=== PATIENT | female | born 2000 | race Caucasian/White ===

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

== ENCOUNTER → 2018-03-13 | Outpatient (REF) | payer OTHER ==
[2018-03-13 12:07] LABS: ALBUMIN 3.3 GM/DL (3.2-5.2); ALBUMIN/GLOBULIN RATIO 0.83 (1.00-1.93); ALKALINE PHOSPHATASE 80 U/L (45-117); ALT/SGPT 29 U/L (12-78); ANION GAP 10 MEQ/L (8-16); AST/SGOT 27 U/L (7-37); BILIRUBIN,TOTAL 0.3 MG/DL (0.2-1.0); BLOOD UREA NITROGEN 12 MG/DL (7-18); CALCIUM LEVEL 9.1 MG/DL (8.5-10.1); CARBON DIOXIDE LEVEL 23 MEQ/L (21-32); CHLORIDE LEVEL 109 MEQ/L (98-107); CREATININE FOR GFR 0.68 MG/DL (0.55-1.30); GLUCOSE, FASTING 175 MG/DL (70-100); IRON (FE) 61 UG/DL (50-170); POTASSIUM SERUM 4.4 MEQ/L (3.5-5.1); SODIUM LEVEL 142 MEQ/L (136-145); TOTAL PROTEIN 7.3 GM/DL (6.4-8.2)
[2018-03-13 12:24] LABS: HEPATITIS B SURFACE ANTIGEN NEGATIVE (NEGATIVE)
[2018-03-13 12:47] LABS: HEPATITIS B CORE ANTIBODY IGM NEGATIVE (NEGATIVE)
[2018-03-13 12:53] LABS: HEPATITIS A ANTIBODY IGM NEGATIVE (NEGATIVE)
[2018-03-13 13:17] LABS: ESTIMATED AVERAGE GLUCOSE 157 MG/DL (60-110); HEMOGLOBIN A1c 7.1 %
[2018-03-14 08:06] LABS: TRANSFERRIN 264 mg/dL (200-370)
== END ==
LOC: M SFHCPLAZ 09:13
DX: E11.9 Type 2 diabetes mellitus without complications (principal); R79.89 Other specified abnormal findings of blood chemistry

== ENCOUNTER → 2018-03-20 | Outpatient (REF) | payer OTHER, SELFPAY ==
[2018-03-20 13:47] LABS: CHLAMYDIA DNA AMPLIFICATION POSITIVE (NEGATIVE); GC DNA AMPLIFICATION NEGATIVE (NEGATIVE)
== END ==
LOC: M SFHCWAGY 11:35
DX: Z11.3 Encounter for screening for infections with a predominantly sexual mode of transmission (principal); N94.10 Unspecified dyspareunia; N72 Inflammatory disease of cervix uteri
CPT/HCPCS: 87591

== ENCOUNTER → 2018-05-04 | Outpatient (REF) | payer OTHER | LOC: M LAB REF 19:03 | DX: N39.0 Urinary tract infection, site not specified (principal) ==

== ENCOUNTER → 2018-06-25 | Outpatient (REF) | payer OTHER | LOC: M SFHCPLAZ 17:11 | DX: R30.0 Dysuria (principal) | CPT/HCPCS: 87086 ==

== ENCOUNTER → 2018-07-09 | Outpatient (REF) | payer OTHER | LOC: M SFHCWAGY 17:04 | DX: A60.1 Herpesviral infection of perianal skin and rectum (principal) ==

== ENCOUNTER → 2018-10-23 | Outpatient (REF) | payer OTHER ==
[2018-10-23 12:36] LABS: ALBUMIN 3.3 GM/DL (3.2-5.2); ALBUMIN/GLOBULIN RATIO 0.87 (1.00-1.93); ALKALINE PHOSPHATASE 81 U/L (45-117); ALT/SGPT 19 U/L (12-78); ANION GAP 11 MEQ/L (8-16); AST/SGOT 13 U/L (7-37); BILIRUBIN,TOTAL 0.2 MG/DL (0.2-1.0); BLOOD UREA NITROGEN 13 MG/DL (7-18); CALCIUM LEVEL 9.3 MG/DL (8.5-10.1); CARBON DIOXIDE LEVEL 26 MEQ/L (21-32); CHLORIDE LEVEL 104 MEQ/L (98-107); CREATININE FOR GFR 0.71 MG/DL (0.55-1.30); GLUCOSE, FASTING 169 MG/DL (70-100); POTASSIUM SERUM 3.9 MEQ/L (3.5-5.1); SODIUM LEVEL 141 MEQ/L (136-145); TOTAL PROTEIN 7.1 GM/DL (6.4-8.2)
[2018-10-23 13:04] LABS: ESTIMATED AVERAGE GLUCOSE 148 MG/DL (60-110); HEMOGLOBIN A1c 6.8 %
== END ==
LOC: M SFHCPLAZ 08:49
DX: E11.9 Type 2 diabetes mellitus without complications (principal); K76.0 Fatty (change of) liver, not elsewhere classified

== ENCOUNTER 2019-01-25 22:51 | Emergency (ER) | payer BC, OTHER, SELFPAY ==
[~2019-01-25] VITALS: Ht 157.5 cm; Wt 89.1 kg
[~2019-01-25 22:51] MED LIST changes: +GLIP5TAB8; +JANU100T; +NUVAMIS2; -PROHANCE 279.3MG/ML 15ML VIAL (A9576) As Ordered ONE; -PROHANCE 279.3MG/ML 5ML VIAL (A9576) As Ordered ONE
[2019-01-25] MEDS ORDERED: VALA500T5 (23:01)
[2019-01-25] MEDS ORDERED: DULO1CAP2 (23:01)
[2019-01-25] MEDS ORDERED: TRUL0.5I (23:01)
[2019-01-25] MEDS ORDERED: METF-723 (23:01)
[2019-01-26] MEDS ORDERED: diphenhydrAMINE INJ 50MG/ML VIAL (J1200) IV ONE (00:45)
[2019-01-26] MEDS ORDERED: NS 500 ML IV ONE (00:45)
[2019-01-26] MEDS ORDERED: KETOROLAC 30 MG/ML VIAL (J1885) IV ONE (00:45)
[2019-01-26] MEDS ORDERED: METOCLOPRAMIDE INJ 10MG/2ML VIAL (J2765) IV ONE (00:45)
[2019-01-26 01:45] VITALS: BP 127/72
== END 2019-01-26 01:45 | disposition home or self-care (01) ==
LOC: M ED 22:51
DX: G44.209 Tension-type headache, unspecified, not intractable (principal); E11.9 Type 2 diabetes mellitus without complications; Z79.84 Long term (current) use of oral hypoglycemic drugs; Z79.899 Other long term (current) drug therapy; Z91.013 Allergy to seafood; Z79.3 Long term (current) use of hormonal contraceptives; Z82.0 Family history of epilepsy and other diseases of the nervous system
CPT/HCPCS: 96374; 96375; 99284; J1200; J1885; J2765

== ENCOUNTER → 2019-01-28 | Outpatient (CLI) | payer SELFPAY ==
[~2019-01-28] MED LIST changes: +DULO1CAP2; +METF-723; +TRUL0.5I; +VALA500T5
[2019-01-28 16:48] LABS: BLOOD UREA NITROGEN 11 MG/DL (7-18); CALCIUM LEVEL 9.2 MG/DL (8.5-10.1); CARBON DIOXIDE LEVEL 26 MEQ/L (21-32); CHLORIDE LEVEL 106 MEQ/L (98-107); CREATININE FOR GFR 0.68 MG/DL (0.55-1.30); GLUCOSE, FASTING 123 MG/DL (70-100); POTASSIUM SERUM 4.2 MEQ/L (3.5-5.1); SODIUM LEVEL 141 MEQ/L (136-145)
[2019-01-28 17:17] LABS: HEMOGLOBIN A1c 6.7 %
== END ==
LOC: M LAB 15:48
PROVIDERS: ATTEND Nurse Practitioner Family
DX: E11.9 Type 2 diabetes mellitus without complications (principal)

== ENCOUNTER 2019-03-10 12:07 | Emergency (ER) | payer BC ==
[~2019-03-10] VITALS: Ht 157.5 cm; Wt 94.1 kg
[2019-03-10] MEDS ORDERED: KETOROLAC 60 MG/2 ML VIAL (J1885) IM ONE (12:45)
[2019-03-10] MEDS ORDERED: ROBA500T PO (13:08)
[2019-03-10] MEDS ORDERED: NAPR500T6 PO (13:09)
[2019-03-10 13:17] VITALS: BP 127/77
== END 2019-03-10 13:26 | disposition home or self-care (01) ==
LOC: M ED 12:07
DX: M54.5 Low back pain (principal); E11.9 Type 2 diabetes mellitus without complications; Z79.84 Long term (current) use of oral hypoglycemic drugs; Z79.899 Other long term (current) drug therapy; Z91.018 Allergy to other foods
CPT/HCPCS: 96372; 99283; J1885

== ENCOUNTER → 2019-03-24 | Outpatient (REF) | payer BC ==
[~2019-03-24] MED LIST changes: +ALBU17IN2 INH; +AZIT-12 PO; +NAPR500T6 PO; +ROBA500T PO; +TESS100C PO
== END ==
LOC: M LAB REF 19:06
PROVIDERS: ATTEND Physician Assistant Medical
DX: J02.9 Acute pharyngitis, unspecified (principal)

== ENCOUNTER 2019-03-26 22:30 | Emergency (ER) | payer BC ==
[~2019-03-26] VITALS: Ht 157.5 cm; Wt 95.5 kg
[~2019-03-26 22:30] MED LIST changes: -ALBU17IN2 INH; -AZIT-12 PO; -TESS100C PO
[2019-03-26] MEDS ORDERED: ACETAMINOPHEN TAB 650MG DOSE (2X325MG) PO ONE (23:15)
[2019-03-26] MEDS: IPRATROPIUM 0.5MG/ALBUTEROL 2.5MG INH SOL UD 3ML (DUONEB)(J7620) NEB PRN ×2 (23:26→23:46)
[2019-03-26 23:36] LABS: HEMATOCRIT 38.6 % (36.0-47.0); HEMOGLOBIN 12.6 g/dl (12.0-15.5); MEAN CORPUSCULAR HEMOGLOBIN 27.7 pg (27.0-33.0); MEAN CORPUSCULAR HGB CONC 32.6 g/dl (32.0-36.5); MEAN CORPUSCULAR VOLUME 84.8 fl (80.0-96.0); PLATELET COUNT, AUTOMATED 329 10^3/uL (150-450); RED BLOOD COUNT 4.55 10^6/uL (4.00-5.40); WHITE BLOOD COUNT 10.3 10^3/uL (4.0-10.0)
[2019-03-27 00:01] LABS: BLOOD UREA NITROGEN 8 MG/DL (7-18); CALCIUM LEVEL 8.5 MG/DL (8.5-10.1); CARBON DIOXIDE LEVEL 20 MEQ/L (21-32); CHLORIDE LEVEL 108 MEQ/L (98-107); CK-MB VALUE MASS < 1.0 NG/ML (<3.6); CPK CREATINE PHOSPHOKINASE 170 U/L (26-192); CREATININE FOR GFR 0.79 MG/DL (0.55-1.30); GLUCOSE, FASTING 146 MG/DL (70-100); MB/CK RELATIVE INDEX 0.59 (< OR =4); POTASSIUM SERUM 3.6 MEQ/L (3.5-5.1); SODIUM LEVEL 140 MEQ/L (136-145); TROPONIN I < 0.02 NG/ML (< 0.10)
[2019-03-27] MEDS ORDERED: ALBU17IN2 INH (00:27)
[2019-03-27] MEDS ORDERED: TESS100C PO (00:27)
[2019-03-27] MEDS: IPRATROPIUM 0.5MG/ALBUTEROL 2.5MG INH SOL UD 3ML (DUONEB)(J7620) NEB PRN (00:29)
[2019-03-27] MEDS ORDERED: BENZONATATE 100 MG CAP PO ONE (00:30)
[2019-03-27 00:35] VITALS: BP 138/71
--- NOTE | 2019-03-27 06:03 | ECGEPIP ---
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
--- NOTE | 2019-03-27 08:24 | REP ---
At x-ray: Two views. History: Chest pain. Comparison chest x-ray: February 05, 2012. Findings: There is an infiltrate behind the heart in the left lower lobe consistent with pneumonia. Pleural angles are sharp. Heart size is normal. Pulmonary vasculature is not increased. No significant bony abnormality is seen. Impression: Left lower lobe pneumonia. Electronically Signed by Shaheen Gordillo MD 03/27/2019 08:16 A
[2019-03-27] MEDS ORDERED: AZIT-12 PO (17:10)
--- NOTE | 2019-03-27 18:10 | ED PDOC ---
Post-Departure Follow-Up Called the patient to see how she was doing. Explained her xray was read as a le ft lower lobe pneumonia. I sent in an antibiotic for her and she stated she would pick it up today. LAVELLE IRVING PA-C March 27, 2019 18:10
--- NOTE | 2019-03-30 06:15 | ED PDOC ---
Post-Departure Follow-Up benson snow faxed formal report of cxr for fu Nanci Herman MD March 30, 2019 06:15
== END 2019-03-27 00:56 | disposition home or self-care (01) ==
LOC: M ED 22:30
DX: J06.9 Acute upper respiratory infection, unspecified (principal); J18.0 Bronchopneumonia, unspecified organism; R00.0 Tachycardia, unspecified; F41.9 Anxiety disorder, unspecified; A60.04 Herpesviral vulvovaginitis; Z79.3 Long term (current) use of hormonal contraceptives; Z91.013 Allergy to seafood; Z79.899 Other long term (current) drug therapy

== ENCOUNTER → 2019-08-23 | Outpatient (REF) | payer MEDICAID ==
[~2019-08-23] MED LIST changes: +AZIT-12 PO; -DULO1CAP2; +DULO1CAP5; +PROV108A INH; +TESS100C PO
[2019-08-23 21:57] LABS: APPEARANCE, URINE TURBID (CLEAR); BACTERIA, URINE AUTO 1+ (NEGATIVE); BILIRUBIN, URINE AUTO NEGATIVE (NEGATIVE); BLOOD, URINE BLOOD 2+ (NEGATIVE); COLOR, URINE YELLOW (YELLOW); GLUCOSE, URINE (UA) AUTO NEGATIVE (NEGATIVE); KETONE, URINE AUTO TRACE mg/dL (NEGATIVE); LEUKOCYTE ESTERASE, URINE AUTO 3+ (NEGATIVE); NITRITE, URINE AUTO POSITIVE (NEGATIVE); PROTEIN, URINE AUTO 1+ mg/dL (NEGATIVE); RBC, URINE AUTO 22 /HPF (0-3); SPECIFIC GRAVITY URINE AUTO 1.017 (1.002-1.035); SQUAMOUS EPITHELIAL CELL UR AU 4 /HPF (0-6); UROBILINOGEN, URINE AUTO 0.2 mg/dL (0.0-2.0); WBC, URINE AUTO TNTC /HPF (0-3)
== END ==
LOC: M LAB REF 10:04
PROVIDERS: ATTEND Physician Assistant Medical
DX: N39.0 Urinary tract infection, site not specified (principal)

== ENCOUNTER → 2019-11-18 | Outpatient (REF) | payer OTHER ==
[2019-11-18 14:13] LABS: ALT/SGPT 195 U/L (12-78); BILIRUBIN,TOTAL 0.6 MG/DL (0.2-1.0); BLOOD UREA NITROGEN 10 MG/DL (7-18); CALCIUM LEVEL 9.7 MG/DL (8.5-10.1); CARBON DIOXIDE LEVEL 24 MEQ/L (21-32); CHLORIDE LEVEL 98 MEQ/L (98-107); CREATININE FOR GFR 0.74 MG/DL (0.55-1.30); GLOMERULAR FILTRATION RATE > 60.0 (>60); GLUCOSE, FASTING 260 MG/DL (70-100); POTASSIUM SERUM 4.3 MEQ/L (3.5-5.1); SODIUM LEVEL 134 MEQ/L (136-145); TOTAL PROTEIN 8.1 GM/DL (6.4-8.2)
[2019-11-18 14:22] LABS: MALB URINE SIEMENS 32.4 MG/L; MAU/CREAT RATIO 24.1 MCG/MG (0.0-30.0)
[2019-11-18 14:43] LABS: HEMOGLOBIN A1c 9.1 %
== END ==
LOC: M SFHCPLAZ 11:44
PROVIDERS: ATTEND Physician Assistant
DX: E11.9 Type 2 diabetes mellitus without complications (principal)

== ENCOUNTER 2019-12-27 15:17 | Emergency (ER) | payer OTHER ==
[~2019-12-27] VITALS: Ht 157.5 cm; Wt 95.6 kg
[~2019-12-27 15:17] MED LIST changes: -NAPR-837 PO; -PROT1TAB2 PO; -ZOFR4TAB16 PO
[2019-12-27 16:03] LABS: BASO % 0.4 % (0.0-1.0); EOS # 0.1 10^3/uL (0.0-0.5); EOS % 1.2 % (0.0-3.0); HEMATOCRIT 41.3 % (36.0-47.0); HEMOGLOBIN 13.9 g/dl (12.0-15.5); LYMPH # 2.6 10^3/uL (1.5-5.0); LYMPH % 22.9 % (24.0-44.0); MEAN CORPUSCULAR HEMOGLOBIN 28.7 pg (27.0-33.0); MEAN CORPUSCULAR HGB CONC 33.7 g/dl (32.0-36.5); MEAN CORPUSCULAR VOLUME 85.2 fl (80.0-96.0); MONO # 0.7 10^3/uL (0.0-0.8); MONO % 6.4 % (0.0-5.0); NEUTROPHILS # 7.9 10^3/uL (1.5-8.5); NEUTROPHILS % 68.9 % (36.0-66.0); PLATELET COUNT, AUTOMATED 295 10^3/uL (150-450); RED BLOOD COUNT 4.85 10^6/uL (4.00-5.40); WHITE BLOOD COUNT 11.4 10^3/uL (4.0-10.0)
[2019-12-27 16:27] LABS: ALBUMIN 3.8 GM/DL (3.2-5.2); ALT/SGPT 220 U/L (12-78); BILIRUBIN,DIRECT 0.2 MG/DL (0.0-0.2); BILIRUBIN,TOTAL 0.6 MG/DL (0.2-1.0); BLOOD UREA NITROGEN 10 MG/DL (7-18); CALCIUM LEVEL 9.1 MG/DL (8.5-10.1); CARBON DIOXIDE LEVEL 24 MEQ/L (21-32); CHLORIDE LEVEL 106 MEQ/L (98-107); CREATININE FOR GFR 0.62 MG/DL (0.55-1.30); GLOMERULAR FILTRATION RATE > 60.0 (>60); GLUCOSE, FASTING 144 MG/DL (70-100); LIPASE 81 U/L (73-393); POTASSIUM SERUM 4.1 MEQ/L (3.5-5.1); SODIUM LEVEL 139 MEQ/L (136-145); TOTAL PROTEIN 7.3 GM/DL (6.4-8.2)
[2019-12-27 16:33] LABS: HCG, SERUM QUALITATIVE NEGATIVE (NEGATIVE)
[2019-12-27] MEDS ORDERED: GI COCKTAIL 50ML BTL(HYOSCYAMINE/MAALOX/LIDOCAINE VISCOUS)(1:3:1) PO ONE (18:00)
[2019-12-27] MEDS ORDERED: NAPR-837 PO (18:09)
[2019-12-27] MEDS ORDERED: ZOFR4TAB16 PO (18:09)
[2019-12-27] MEDS ORDERED: PROT1TAB2 PO (18:09)
[2019-12-27 18:14] VITALS: BP 131/77
[2019-12-27 18:51] LABS: HEPATITIS A ANTIBODY IGM NEGATIVE (NEGATIVE)
[2019-12-29 11:02] LABS: HEPATITIS B SURFACE ANTIGEN NEGATIVE (NEGATIVE)
[2019-12-29 11:30] LABS: HEPATITIS C VIRUS ABY INDEX < 0.0 INDEX (<0.8)
[2019-12-29 11:31] LABS: HEPATITIS B CORE ANTIBODY IGM NEGATIVE (NEGATIVE)
== END 2019-12-27 18:22 | disposition home or self-care (01) ==
LOC: M ED 15:17
DX: K75.89 Other specified inflammatory liver diseases (principal); E11.9 Type 2 diabetes mellitus without complications; G43.909 Migraine, unspecified, not intractable, without status migrainosus; Z79.899 Other long term (current) drug therapy; Z79.84 Long term (current) use of oral hypoglycemic drugs; Z79.3 Long term (current) use of hormonal contraceptives; Z91.018 Allergy to other foods

== ENCOUNTER → 2019-12-27 | Outpatient (CLI) | payer OTHER ==
[~2019-12-27] MED LIST changes: +NAPR-837 PO; +PROT1TAB2 PO; +ZOFR4TAB16 PO
--- NOTE | 2019-12-27 09:04 | REP ---
Clinical: Hepatic steatosis. Technique: Real time perez scale and color evaluation using curved array transducer. Findings: The liver is relatively normal in parenchymal echo texture and without significant suggestions for fatty infiltration. Few scattered simple hepatic cysts are identified measuring up to 10 mm in the right lobe. Pancreas is normal in appearance. The gallbladder is unremarkable and without gallstones, wall thickening, or pericholecystic fluid. No biliary ductal dilatation is appreciated and the common bile duct measures 4.2 mm diameter. The right kidney is normal in reniform shape without hydronephrosis and measures 11.2 x 6.3 x 4.7 cm. No ascites. Impression: 1. No definite findings to suggest hepatic steatosis. 2. Two 10 mm simple hepatic cysts. Electronically Signed by Wali Ibrahim MD 12/27/2019 08:56 A
== END ==
LOC: M RAD 08:07
PROVIDERS: ATTEND Physician Assistant
DX: K76.0 Fatty (change of) liver, not elsewhere classified (principal)

== ENCOUNTER → 2020-02-16 | Outpatient (REF) | payer OTHER ==
[~2020-02-16] MED LIST changes: +NAPR-837 PO; +PROT1TAB2 PO; +ZOFR4TAB16 PO
[2020-02-16 13:24] LABS: HEMATOCRIT 39.6 % (36.0-47.0); HEMOGLOBIN 13.4 g/dl (12.0-15.5); MEAN CORPUSCULAR HEMOGLOBIN 29.2 pg (27.0-33.0); MEAN CORPUSCULAR HGB CONC 33.8 g/dl (32.0-36.5); MEAN CORPUSCULAR VOLUME 86.3 fl (80.0-96.0); PLATELET COUNT, AUTOMATED 277 10^3/uL (150-450); RED BLOOD COUNT 4.59 10^6/uL (4.00-5.40); WHITE BLOOD COUNT 9.6 10^3/uL (4.0-10.0)
[2020-02-16 13:39] LABS: ALBUMIN 3.7 GM/DL (3.2-5.2); ALT/SGPT 207 U/L (12-78); BILIRUBIN,DIRECT 0.2 MG/DL (0.0-0.2); BILIRUBIN,TOTAL 0.7 MG/DL (0.2-1.0); CREATININE FOR GFR 0.66 MG/DL (0.55-1.30); GLOMERULAR FILTRATION RATE > 60.0 (>60); LDH LACTATE DEHYDROGENASE 187 U/L (84-246); TOTAL PROTEIN 7.8 GM/DL (6.4-8.2); URIC ACID 4.3 MG/DL (2.6-6.0)
[2020-02-16 13:53] LABS: RUBELLA IgG QUALITATIVE IMMUNE (IMMUNE)
[2020-02-16 13:54] LABS: HEPATITIS B SURFACE ANTIGEN NEGATIVE (NEGATIVE); TOTAL PROTEIN,RANDOM URINE 17.2 MG/DL (0.0-12.0)
[2020-02-16 14:01] LABS: HEMOGLOBIN A1c 8.8 %
[2020-02-16 14:22] LABS: HEPATITIS C VIRUS ABY INDEX 0.1 INDEX (<0.8)
[2020-02-16 14:23] LABS: HIV 1&2 SCREEN CENTAUR NEGATIVE (NEGATIVE)
== END ==
LOC: M PLALAB 11:07
PROVIDERS: ATTEND Advanced Practice Midwife
DX: O24.311 Unspecified pre-existing diabetes mellitus in pregnancy, first trimester (principal)

== ENCOUNTER → 2020-03-06 | Outpatient (REF) | payer OTHER | LOC: M LAB REF 11:13 | PROVIDERS: ATTEND Advanced Practice Midwife | DX: O24.311 Unspecified pre-existing diabetes mellitus in pregnancy, first trimester (principal) ==

== ENCOUNTER → 2020-03-13 | Outpatient (REF) | payer OTHER ==
[2020-03-13 20:12] LABS: CHLAMYDIA DNA AMPLIFICATION NEGATIVE (NEGATIVE); GC DNA AMPLIFICATION NEGATIVE (NEGATIVE)
== END ==
LOC: M PLALAB 14:02
PROVIDERS: ATTEND Obstetrics & Gynecology
DX: E11.9 Type 2 diabetes mellitus without complications (principal)

== ENCOUNTER → 2020-03-29 | Outpatient (REF) | payer OTHER ==
[2020-03-29 16:16] LABS: HEMOGLOBIN A1c 7.4 %
== END ==
LOC: M PLALAB 13:53
PROVIDERS: ATTEND Obstetrics & Gynecology
DX: O24.111 Pre-existing type 2 diabetes mellitus, in pregnancy, first trimester (principal)

== ENCOUNTER → 2020-05-16 | Outpatient (CLI) | payer OTHER ==
--- NOTE | 2020-05-16 12:25 | REP ---
OBSTETRIC SONOGRAPHY: HISTORY: Supervision of for anatomy. FINDINGS: Scanning through the gravid uterus demonstrates a viable single intrauterine gestation in a variable lie. motion is observed and heart rate is recorded at 153 beats per minute. A posterior grade 1 placenta is seen without evidence of previa or abruption. Amniotic fluid is subjectively normal. Closed cervical length measured transabdominally at 3.6 cm. No extrauterine abnormalities observed. No anomaly is seen. The following anatomic structures are identified and felt to be sonographically unremarkable: cranium, choroid plexus, cavum, cerebellum and posterior fossa, nuchal fold, face and profile, four-chamber heart with left and right ventricular outflow tract views, diaphragm, left-sided stomach, abdominal wall cord insertion, three-vessel cord, kidneys and bladder, spine, upper and lower extremities. Biometry Chart: BPD 4.5 cm = 19 weeks 4 days HC 16.4 cm = 19 weeks 1 day AC 14.2 cm = 19 weeks 4 days FL 3.1 cm = 19 weeks 3 days HL 3.0 cm = 19 weeks 6 days HC/AC ratio normal 1.15 Cephalic index normal 0.77. Estimated weight 296 grams, 0 pounds 10 ounces, 50th percentile for 19 weeks 3 days. IMPRESSION: Viable single intrauterine gestation of 19 weeks 2 days by today's composite sonographic criteria. GUERITA by today's sonography October 08, 2020.
== END ==
LOC: M WHC 10:02
PROVIDERS: ATTEND Obstetrics & Gynecology
DX: Z36.89 Encounter for other specified antenatal screening (principal); Z3A.19 19 weeks gestation of pregnancy

== ENCOUNTER → 2020-06-26 | Outpatient (REF) | payer OTHER ==
[~2020-06-26] MED LIST changes: +ASPI81TA26; +FOLI20CA PO; +HYDR12.55 PO; +IBUP80TA PO; +INSUR; +INSUR SQ; +LABE200T32 PO; +LABE20TAB PO; +MAPA500T2 PO; +NIFE1TAB52 PO; +OXYC1TAB23 PO
[2020-07-26 14:48] LABS: BASO % 0.2 % (0.0-1.0); EOS # 0.1 10^3/uL (0.0-0.5); EOS % 0.6 % (0.0-3.0); HEMATOCRIT 32.2 % (36.0-47.0); HEMOGLOBIN 10.5 g/dl (12.0-15.5); LYMPH # 2.3 10^3/uL (1.5-5.0); LYMPH % 23.1 % (24.0-44.0); MEAN CORPUSCULAR HEMOGLOBIN 28.8 pg (27.0-33.0); MEAN CORPUSCULAR HGB CONC 32.6 g/dl (32.0-36.5); MEAN CORPUSCULAR VOLUME 88.5 fl (80.0-96.0); MONO # 0.5 10^3/uL (0.0-0.8); MONO % 5.1 % (0.0-5.0); NEUTROPHILS # 6.8 10^3/uL (1.5-8.5); NEUTROPHILS % 70.3 % (36.0-66.0); PLATELET COUNT, AUTOMATED 254 10^3/uL (150-450); RED BLOOD COUNT 3.64 10^6/uL (4.00-5.40); WHITE BLOOD COUNT 9.7 10^3/uL (4.0-10.0)
[2020-08-08 13:20] LABS: HEMOGLOBIN A1c 5.9 %
== END ==
LOC: M SFHCWAGY 09:22 → M SFHCPLAZ 09:22
PROVIDERS: ATTEND Specialist
DX: Z34.80 Encounter for supervision of other normal pregnancy, unspecified trimester (principal); Z3A.00 Weeks of gestation of pregnancy not specified
CPT/HCPCS: 36415; 83036; 85025; 86850; 86900; 86901; J2790

== ENCOUNTER → 2020-07-17 | Outpatient (CLI) | payer OTHER ==
--- NOTE | 2020-08-15 09:41 | REP ---
LIMITED OBSTETRIC ULTRASOUND CLINICAL: History of maternal diabetes. Gestational diabetes. TECHNIQUE: Transabdominal ultrasound with color Doppler evaluation. FINDINGS: Ultrasound examination demonstrates a single live intrauterine in cephalic presentation. motion was identified by technologist. heart rate equals 153 beats per minute. Placenta noted posteriorly and grade 1 without evidence for placenta previa or abruption. Amniotic fluid volume is normal. JANE equals 16.9 cm. Cervix measures 13.3 cm in length and appears closed. MEASUREMENTS: BPD 72 mm 28 weeks 5 days HC 270 mm 29 weeks 3 days AC 242 mm 28 weeks 4 days FL 53 mm 28 weeks 2 days HL 49 mm 29 weeks 0 days Gestational age by current measurements 28 weeks 6 days with estimated date of delivery 10/03/2020. Estimated weight 1234 grams (44th percentile) IMPRESSION: Single live intrauterine in cephalic presentation demonstrating appropriate estimated weight and growth. No gross abnormalities are identified. MTDD
== END ==
LOC: M WHC 09:04
PROVIDERS: ATTEND Obstetrics & Gynecology
DX: O24.415 Gestational diabetes mellitus in pregnancy, controlled by oral hypoglycemic drugs (principal); Z3A.28 28 weeks gestation of pregnancy

== ENCOUNTER → 2020-08-14 | Outpatient (CLI) | payer OTHER ==
--- NOTE | 2020-08-18 09:54 | REP ---
OBSTETRIC SONOGRAPHY HISTORY: growth study. Maternal diabetes. EDC October 07, 2020. FINDINGS: Scanning through the gravid uterus demonstrates a single living intrauterine gestation in a transverse, head to the maternal left, lie. Placenta is posterior without evidence of placenta previa. Amniotic fluid is subjectively normal. Closed cervical length is measured at 3.1 cm viewed transabdominally. BIOMETRY CHART: BPD 8.4 cm 33 weeks 4 days Head Circumference 29.0 cm 32 weeks 0 days Abdominal Circumference 27.9 cm 32 weeks 0 days Femur Length 6.2 cm 32 weeks 1 day Humeral Length 5.6 cm 32 weeks 2 days HC/AC ratio Normal 1.04 Cephalic index Normal 0.83 Estimated Weight 1915 g 4 pounds 3 ounces, 35th percentile for 32 weeks 2 days IMPRESSION: Single living intrauterine gestation at 32 weeks 3 days by todays composite criteria. GUERITA by today sonography October 06, 2020. Estimated weight 35th percentile for 32 weeks 2 days, 1915 grams, 4 pounds 3 ounces. MTDD
== END ==
LOC: M WHC 08:59
PROVIDERS: ATTEND Obstetrics & Gynecology
DX: O24.113 Pre-existing type 2 diabetes mellitus, in pregnancy, third trimester (principal); Z3A.32 32 weeks gestation of pregnancy; Z79.84 Long term (current) use of oral hypoglycemic drugs

== ENCOUNTER → 2020-09-05 | Outpatient (REF) | payer OTHER ==
[~2020-09-05] MED LIST changes: -HYDR12.55 PO; -IBUP80TA PO; -INSUR SQ; -LABE200T32 PO; -LABE20TAB PO; -NIFE1TAB52 PO; -OXYC1TAB23 PO
== END ==
LOC: M SFHCWAGY 13:42
PROVIDERS: ATTEND Obstetrics & Gynecology
DX: Z3A.36 36 weeks gestation of pregnancy (principal)

== ENCOUNTER → 2020-09-11 | Outpatient (CLI) | payer OTHER ==
[~2020-09-11] MED LIST changes: +IBUP80TA PO; +INSUR SQ; +LABE200T32 PO; +LABE20TAB PO; +OXYC1TAB23 PO
--- NOTE | 2020-09-11 14:31 | REP ---
INDICATION: PRE EXISTING DMZ,GROWTH. COMPARISON: Comparison study August 14, 2020.. TECHNIQUE: Transabdominal scanning. FINDINGS: Scanning through the gravid uterus demonstrates a viable single intrauterine gestation in cephalic lie. motion is observed and heart rate is recorded at 134 beats per minute. A posterior placenta is seen, grade 2, without evidence of placenta previa. Amniotic fluid is subjectively normal. Closed cervical length is measured at 3.3 cm transabdominally. No extrauterine abnormality is observed. JANE is normal at 15.1 cm.. Biometry chart: BPD 9.0 cm, 36 weeks 2 days Head circumference 32.5 cm, 36 weeks 6 days Abdominal circumference 32.3 cm, 36 weeks 2 days Femur length 7.1 cm, 36 weeks 1 day Humeral length 6.3 cm, 36 weeks 2 days HC AC ratio normal 1.01 Cephalic index normal 0.77 Estimated weight 2902 g, 6 lb 6 oz, 62nd percentile for 36 weeks 2 days IMPRESSION: Viable single intrauterine gestation at 36 weeks 2 days by today's composite sonographic criteria. GUERITA by today's sonography October 07, 2020. No complication identified. <Electronically signed by Bret Gordillo > 09/11/20 [id number]
== END ==
LOC: M WHC 09:02
PROVIDERS: ATTEND Obstetrics & Gynecology
DX: Z36.89 Encounter for other specified antenatal screening (principal); O24.113 Pre-existing type 2 diabetes mellitus, in pregnancy, third trimester; Z3A.36 36 weeks gestation of pregnancy

== ENCOUNTER 2020-09-18 17:02 | Inpatient (IN) | payer OTHER ==
[~2020-09-18] VITALS: Ht 157.5 cm; Wt 115.8 kg
[~2020-09-18 17:02] MED LIST changes: -ASPI81TA26; -FOLI20CA PO; -IBUP80TA PO; -INSUR; -INSUR SQ; -LABE200T32 PO; -LABE20TAB PO; -MAPA500T2 PO; -OXYC1TAB23 PO
[2020-09-18 17:22] VITALS: BP 161/81
[2020-09-18 17:23] VITALS: BP 162/80
[2020-09-18] MEDS ORDERED: LACTATED RINGER'S 1000 ML IV STA (18:00)
[2020-09-18] MEDS ORDERED: INSULIN IV RATE CHANGE DOCUMENTATION ML/HR XX SCH (18:00)
[2020-09-18] MEDS ORDERED: D5W/0.9% SODIUM CHLORIDE 1,000 ML IV SCH (18:00)
[2020-09-18] MEDS ORDERED: INSUR (18:06)
[2020-09-18] MEDS ORDERED: ASPI81TA26 (18:06)
[2020-09-18] MEDS ORDERED: VALA500T5 (18:06)
[2020-09-18] MEDS ORDERED: FOLI20CA PO (18:06)
[2020-09-18] MEDS ORDERED: MAPA500T2 PO (18:06)
[2020-09-18 18:27] LABS: ALT/SGPT 23 U/L (12-78); BILIRUBIN,TOTAL 0.3 MG/DL (0.2-1.0); CREATININE FOR GFR 0.64 MG/DL (0.55-1.30); GLOMERULAR FILTRATION RATE > 60.0 (>60); LDH LACTATE DEHYDROGENASE 217 U/L (84-246)
[2020-09-18 18:32] LABS: HEMATOCRIT 32.2 % (36.0-47.0); HEMOGLOBIN 10.4 g/dl (12.0-15.5); MEAN CORPUSCULAR HEMOGLOBIN 26.1 pg (27.0-33.0); MEAN CORPUSCULAR HGB CONC 32.3 g/dl (32.0-36.5); MEAN CORPUSCULAR VOLUME 80.9 fl (80.0-96.0); PLATELET COUNT, AUTOMATED 214 10^3/uL (150-450); RED BLOOD COUNT 3.98 10^6/uL (4.00-5.40); WHITE BLOOD COUNT 8.9 10^3/uL (4.0-10.0)
[2020-09-18 18:45] VITALS: BP 156/80
[2020-09-18] MEDS: miSOPROStol 50 MCG 1/2 TAB (S0191) PO SCH ×2 (18:48→23:16)
[2020-09-18] MEDS: INSULIN REGULAR IN 0.9 % NACL 100 UNIT in IV 1 EA IV SCH ×4 (18:51→22:26)
[2020-09-18] MEDS: NS 1,000 ML IV SCH (19:05)
--- NOTE | 2020-09-18 19:30 | HPEPDOC ---
Obstetrical History & Physical General Date of Admission Sep 18, 2020 at 17:02 Primary Care Physician: SANDOR PABLO CNM History of Present Illness Odalis is a 20 y/o female, at 37.2weeks EGA with a GUERITA of 10/07/20 by 1st trimester U/S on 02/16/20 at 6wks 3days, not consistent with her LMP 12/24/19. She initiated care with [facility] in her first trimester. Her is complicated by pre-gestational diabetes, chronic hypertension, fatty liver, HSV2, obesity, depression/anxiety, and RH negative. Blood glucoses controlled with insulin. No hypertensive medications, and HSV prophylaxis with Valtrex 1g PO daily. She is admitted to L&D today for IOL for pre-gestational diabetes controlled with insulin and chronic hypertension. Denies LOF, vaginal bleeding, contractions. Reports active movement. Denies any current HSV outbreaks. Denies headache, epigastric pain, nausea/vomiting, visual disturbances. 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, no recent outbreaks Asthma, rescue inhaler Ventolin PRN Depression/Anxiety, no medications Height (inches): 62 Pre- weight (lbs.): 210 Admission Weight (lbs.): 255 Change in Weight (lbs.): 45 Past Medical History Past Obstetrical History : Past Obstetrical History: Primgravida 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[employer]ER History: Herpes simplex virus(HSV), History of STD (Chlamydia 2016), Genital Warts Past Medical History Medical History Type 2 Diabetes, insulin dependent during Chronic HTN, no meds Fatty liver, baseline AST 167 ALT 207 Obesity, BMI 46.7 Depression/anxiety, no medications Asthma Granuloma annulare Migraines Surgical History: Other (Tymponostomy) Family History Significant Family History: Cancer (PGF Melanoma and pancreatic ), Diabetes (Father), Hypertension (Father, Mother, PGF) Social History Marital Status: Single Family situation: Spouse/partner home (Lives with a friend) Psychosocial History: Anxiety, Depression * Smoker: non-smoker Alcohol: Denies Drugs: denies Imunizations Tdap status: declined Influenza Status: declined Allergies Coded Allergies: shellfish derived (Unverified Allergy, Unknown, CRAB MEAT- HIVES, 03/10/19) metformin (Verified Adverse Reaction, Unknown, 09/18/20) diarrhea Medications Miscellaneous Medications Acetaminophen (Mapap) 500 Mg Tablet, 1,000 MG PO Aspirin (Aspirin EC) 81 Mg Tablet. Folic Acid (Folic Acid) 20 Mg Capsule, 10 MG PO Insulin Human Regular (Novolin R) 100 Unit/1 Ml Vial Valacyclovir HCl (Valacyclovir) 500 Mg Tablet Physical Examination Physical Examination GENERAL: Alert and oriented times three. ABDOMEN: Gravid and non-tender to touch. FETUS: Is vertex by sterile vaginal examination, fetus is vertex, EFW 5-5.5lbs by Le[place]. LUNGS: Clear to auscultation bilaterally. EXTREMITIES: +2 bilaterally pitting edema. No clonus. Deep tendon reflexes + 2. EXTERNAL GENITALIA: No HSV lesions noted, no redness, edema. Laboratory Data Urine Culture: Contaminated Pertinent Laboratoy Data Blood Type: A- RBC Antibody Screen: Negative HIV: Negative Hepatitis B: Negative Hepatitis C: Negative Rapid Plasma Reagin: Nonreactive Rubella: Immune Chlamydia/Gonorrhea: Negative Group B Streptococcus: Negative Steroid Therapy Steroid Therapy: No Vaginal Examination Dilation: None Effacement: 50% Station: -2 Cervical Consistency: Soft Cervical Position: Posterior Presentation: Cephalic presentation Assessment Heart Rate (FHR): 140 Variability: Moderate Accelerations: Present Decelerations: None Tocometer Contractions: Yes Frequency: irregular Duration: less than 60 seconds Strength: resting tone palp/soft Multi-drug resistant Organism: No history of MDRO Assessment/Plan Assessment IUP at 37.2weeks IOL for Class B Insulin Dependent Diabetic Chronic HTN GBS Negative Cat 1 tracing Plan Admit to Labor and Delivery. Plan of Care was Collaborated with Dr. Meredith. OOB Ad harsha Diet: Regular. Group B Streptococcus (GBS) negative. Labs and intravenous (IV) per unit protocol. Counseled on cytotec, pereyra bulb, and IV Pitocin for IOL. Start Cytotec per order. Insulin drip per protocol. Anesthesia consult per patient's request. Neonatology consult as needed. Dr. Agarwal is aware of patient in department. Anticipate cervical ripening. C-S as appropriate. SANDOR PABLO CNM Sep 18, 2020 18:07
[2020-09-18 20:07] VITALS: BP 149/83
[2020-09-18 23:14] VITALS: BP 148/82
[2020-09-19] VITALS (14 sets, daily range): BP systolic 119–168; BP diastolic 58–93
[2020-09-19] MEDS: ACETAMINOPHEN 500 MG TAB PO PRN ×2 (00:44→22:25)
[2020-09-19] MEDS: INSULIN REGULAR IN 0.9 % NACL 100 UNIT in IV 1 EA IV SCH ×6 (02:17→20:35)
[2020-09-19] MEDS: miSOPROStol 50 MCG 1/2 TAB (S0191) PO SCH ×2 (03:49→08:22)
[2020-09-19] MEDS: NS 1,000 ML IV SCH (03:53)
[2020-09-19] MEDS ORDERED: LABETALOL 100MG/20ML VIAL IV STA ×2 (10:26→11:13)
--- NOTE | 2020-09-19 11:36 | IPNPDOC ---
Obstetrical Progress Note Date of Service Sep 19, 2020 Subjective Patient reports she feels well. Denies any preeclamptic signs. Reports she feels hungry. Objective Vital Signs Date Time Temp Pulse Resp B/P (MAP) Pulse Ox O2 Delivery O2 Flow Rate FiO2 09/19/20 10:41 81 162/90 09/19/20 03:47 98.1 18 Assessment Heart Rate (FHR): 130 Variability: Moderate Accelerations: Positive Decelerations: None Heart Rate Tracing: Category I Tocometer Contractions: Yes Frequency: regular Sterile Vaginal Examination Dilation: 1cm Effacement (%): 60% Station: -2 Cervical Consistency: Soft Cervical Position: Anterior Postion/Presentation: Cephalic presentation Assessment and Plan Age: 20 : 1 Term: 0 Pre-term: 0 Abortions: 0 Livin EGA at Admission: 37.3 Status: Reassuring Group B Streptococcus: Negative Anticipate: Vaginal Delivery Additional Comments Lu bulb placed with 60/40. Patient tolerated well. Does desire IV pain medication. Reviewed elevated BP with Dr. Chan. IV labetalol ordered via IV. SANDOR PABLO CNM Sep 19, 2020 11:36
[2020-09-19] MEDS ORDERED: PROMETHAZINE INJ 25 MG/ML VIAL (J2550) IV ONE (11:45)
[2020-09-19] MEDS ORDERED: BUTORPHANOL 2 MG/ML INJ (J0595) IV ONE (11:45)
[2020-09-19 16:19] LABS: HEMATOCRIT 29.9 % (36.0-47.0); HEMOGLOBIN 9.4 g/dl (12.0-15.5); MEAN CORPUSCULAR HGB CONC 31.4 g/dl (32.0-36.5); MEAN CORPUSCULAR VOLUME 82.6 fl (80.0-96.0); PLATELET COUNT, AUTOMATED 184 10^3/uL (150-450); RED BLOOD COUNT 3.62 10^6/uL (4.00-5.40); WHITE BLOOD COUNT 10.1 10^3/uL (4.0-10.0)
[2020-09-19] MEDS ORDERED: FENTANYL 2MCG/ML ROPIVACAINE 0.2% IN 0.9% NACL 100ML IVBAG As Ordered ONE (16:49)
[2020-09-19] MEDS ORDERED: OXYTOCIN DRIP 30 UNITS in IV 1 EA IV SCH (19:00)
[2020-09-19] MEDS: LABETALOL 200 MG TAB PO SCH (19:11)
[2020-09-19] MEDS ORDERED: REFRIGERATOR IV KEYS XX PRN (20:00)
[2020-09-19] MEDS ORDERED: EPIDURAL COMMENT XX SCH (20:00)
[2020-09-19] MEDS ORDERED: diphenhydrAMINE 50MG/ML VIAL (J1200) IV PRN (20:00)
[2020-09-19] MEDS ORDERED: LACTATED RINGER'S 1000 ML IV PRN (20:00)
[2020-09-19] MEDS ORDERED: ePHEDrine SULFATE 25 MG/5 ML(5MG/ML) SYRINGE IV PRN (20:00)
[2020-09-19] MEDS ORDERED: ONDANSETRON 4MG/2ML VIAL IV PRN (20:00)
[2020-09-19] MEDS ORDERED: EPIDURAL/PCA KEYS XX PRN (20:00)
[2020-09-19] MEDS ORDERED: NALOXONE INJ 0.4MG/1ML VIAL (J2310 PER 1MG) IV PRN (20:00)
[2020-09-19] MEDS: FENTANYL/ROPIVACAINE/NACL BAG 100 ML EPIDURAL SCH (20:09)
[2020-09-20] VITALS (18 sets, daily range): BP systolic 129–148; BP diastolic 66–85
[2020-09-20] MEDS: NS 1,000 ML IV SCH (00:19)
[2020-09-20] MEDS: FENTANYL/ROPIVACAINE/NACL BAG 100 ML EPIDURAL SCH (02:45)
[2020-09-20] MEDS: ACETAMINOPHEN 500 MG TAB PO PRN (05:14)
--- NOTE | 2020-09-20 07:42 | IPNPDOC ---
Obstetrical Progress Note Date of Service Sep 20, 2020 Subjective Patient comfortable after epidural. Pitocin at 18mU. Started on oral labetalol 200mg BID last night cx: 3-4/50-3, Objective Vital Signs Date Time Temp Pulse Resp B/P (MAP) Pulse Ox O2 Delivery O2 Flow Rate FiO2 09/20/20 06:02 79 148/77 (100) 09/20/20 04:13 98.3 09/20/20 03:02 18 Assessment Variability: Moderate Accelerations: Positive Heart Rate Tracing: Category I Tocometer Contractions: Yes Frequency: regular Sterile Vaginal Examination Dilation: 3 cm Effacement (%): 50% Station: -3 Cervical Position: Posterior Postion/Presentation: Cephalic presentation Assessment and Plan Status: Reassuring JOHN JEROME MD. Sep 20, 2020 07:42
[2020-09-20] MEDS: PRENATAL VITAMINS CHEWABLE TABLET PO SCH (09:00)
--- NOTE | 2020-09-20 09:44 | IPNPDOC ---
Text Note Date of Service The patient was seen on 09/20/20. NOTE Discussion with patient Odalis is very frustrated with "how long the induction is taking". She is hungry since not eating since yesterday and states she is uncomfortable, though the epidural has made it so she does not feel contractions. She has stated that she is not sure if she wants to continue the induction vs opting for a and was counseled by KANA Da Silva and now me regarding all of the risks of , namely pain from wound which is what she wants to avoid currently (pain related to ongoing labor) and then wound infection and the possibility of needing wound packing, especially given her diabetes. She wanted a definitive timeline and I told her I could not give her one. If she chooses to continue with IOL, she can eat now and we will perform AROM soon (last check she was 3-/-2). Otherwise, if she opts for , she cannot eat now. In the end, she elects to continue IOL. Geri Meredith MD VS,Jj, I+O VS, Jj, I+O Laboratory Tests 09/19/20 16:15 Vital Signs Date Time Temp Pulse Resp B/P (MAP) Pulse Ox O2 Delivery O2 Flow Rate FiO2 09/20/20 06:02 79 148/77 (100) 09/20/20 04:13 98.3 09/20/20 03:02 18 I&O- Last 24 Hours up to 6 AM 09/20/20 06:00 Intake Total 800 ml Output Total 925 ml Balance -125 ml Geri Meredith MD Sep 20, 2020 09:44
[2020-09-20] MEDS: LABETALOL 200 MG TAB PO SCH ×2 (09:57→20:13)
[2020-09-20] MEDS ORDERED: LR 1,000 ML IV SCH (10:02)
[2020-09-20] MEDS ORDERED: ceFAZolin SOD 2 GM in IV 1 EA IV ONE (10:15)
[2020-09-20] MEDS ORDERED: BICITRA 30ML SOLN UDC PO ONE (10:15)
--- NOTE | 2020-09-20 10:17 | IPNPDOC ---
Text Note Date of Service The patient was seen on 09/20/20. NOTE Decision for section Pt now declining to labor further and requests section. Discussed r/b/a at length, patient and I signed consent form for PLTCS and blood transfusion. All questions answered Plan for 2g IV Ancef prophylaxis and bicitra Nursing team, anesthesia and NICU informed of plan Will proceed to OR when team is ready Geri Meredith MD VS,Jj, I+O VSJj I+O Laboratory Tests 09/19/20 16:15 Vital Signs Date Time Temp Pulse Resp B/P (MAP) Pulse Ox O2 Delivery O2 Flow Rate FiO2 09/20/20 09:57 88 152/80 09/20/20 04:13 98.3 09/20/20 03:02 18 I&O- Last 24 Hours up to 6 AM 09/20/20 06:00 Intake Total 800 ml Output Total 925 ml Balance -125 ml Geri Meredith MD Sep 20, 2020 10:17
[2020-09-20] MEDS ORDERED: MORPHINE PRES-FREE INJ 10 MG/10 ML VIAL (J2274) As Ordered ONE (10:24)
[2020-09-20] MEDS ORDERED: OXYTOCIN INJ 10 UNITS/ML VIAL (J2590) As Ordered ONE (10:24)
[2020-09-20] MEDS ORDERED: ceFAZolin 2 GM/D5W 50 ML IV BAG (J0690 PER 500MG) As Ordered ONE (10:41)
[2020-09-20] MEDS ORDERED: NALOXONE INJ 0.4MG/1ML VIAL (J2310 PER 1MG) IV PRN ×2 (10:48)
[2020-09-20] MEDS ORDERED: ONDANSETRON 4MG/2ML VIAL IV PRN ×3 (10:48→12:45)
[2020-09-20] MEDS ORDERED: METOCLOPRAMIDE INJ 10MG/2ML VIAL (J2765 PER 1) IV PRN (10:48)
[2020-09-20] MEDS ORDERED: NALBUPHINE HCL 10 MG/ML AMP (J2300) IV PRN (10:48)
[2020-09-20] MEDS ORDERED: ONDANSETRON 4MG/2ML VIAL As Ordered ONE (11:06)
[2020-09-20] MEDS ORDERED: diphenhydrAMINE 50MG/ML VIAL (J1200) As Ordered ONE (11:56)
[2020-09-20] MEDS ORDERED: MEASLES,MUMPS,RUBELLA VACCINE INJ (MMR-II) (90707) SC SCH (12:30)
[2020-09-20] MEDS ORDERED: RHOGAM 300 MCG (1500 IU) INJ (J2790) IM SCH (12:30)
[2020-09-20] MEDS ORDERED: PERCOCET 5MG/325MG TAB PO PRN ×2 (12:30)
[2020-09-20] MEDS ORDERED: fentaNYL 100 MCG/2 ML INJECTION (J3010) IV PRN (12:45)
[2020-09-20] MEDS ORDERED: oxyCODONE 5MG TAB PO PRN (12:45)
[2020-09-20] MEDS ORDERED: KETOROLAC 30 MG/ML 1ML VIAL As Ordered ONE (12:55)
[2020-09-20] MEDS: LR 1,000 ML IV SCH ×2 (12:57→20:56)
[2020-09-20] MEDS: KETOROLAC 30 MG/ML 1ML VIAL IV SCH ×2 (12:57→20:07)
[2020-09-20] MEDS: diphenhydrAMINE 50MG/ML VIAL (J1200) IV PRN ×2 (16:29→20:39)
[2020-09-20] MEDS ORDERED: HumaLOG INSULIN (NovoLOG) PER UNIT SC SCH ×2 (17:30→19:00)
[2020-09-20] MEDS: HumaLOG INSULIN (NovoLOG) PER UNIT SC SCH ×2 (17:30→20:39)
[2020-09-20] MEDS: DOCUSATE SODIUM 100 MG CAP PO SCH (20:06)
[2020-09-21] VITALS (7 sets, daily range): BP systolic 131–187; BP diastolic 68–111
[2020-09-21] MEDS: KETOROLAC 30 MG/ML 1ML VIAL IV SCH ×2 (00:25→05:56)
[2020-09-21] MEDS: diphenhydrAMINE 50MG/ML VIAL (J1200) IV PRN (00:26)
[2020-09-21] MEDS: HumaLOG INSULIN (NovoLOG) PER UNIT SC SCH ×6 (07:30→21:43)
--- NOTE | 2020-09-21 07:31 | IPNPDOC ---
Progress Note Date of Service: Sep 21, 2020 Day#: 1 Progress Note SUBJECT: Odalis is a 20-year-old 1 now Para 1-0-0-1 status post elective C/Section, doing well day # 1. She has been ambulating, voiding spontaneously without issue and tolerating regular diet. Passing flatus without difficulty. Reports lochia is like a normal period. Patient is ambulating well. Reports pain well controlled with Tylenol, Motrin, and Percocet. Bonding well with . Discussed using Depo for control prior to discharge, then Nuva Ring after per her desire. OBJECTIVE: VITAL SIGNS: Within normal limits, afebrile. Alert and oriented times three. Respiratory: Regular rate, no accessory muscle use. Abdomen: Fundus firm at U-2. Soft, NTTP. Minimal lochia. ASSESSMENT: Post-operative Day 1 PLAN: 1. Discharge to home tomorrow. 2. Tylenol, Motrin, and Percocet for pain. 3. Encourage ambulation. VS, I&O, 24H, Fishbone Vital Signs/I&O Vital Signs Date Time Temp Pulse Resp B/P (MAP) Pulse Ox O2 Delivery O2 Flow Rate FiO2 09/21/20 06:00 99.0 91 20 142/90 (107) 98 Room Air I&O- Last 24 Hours up to 6 AM 09/21/20 06:00 Intake Total 3180 ml Output Total 2525 ml Balance 655 ml Laboratory Data 24H LABS Laboratory Tests 2 09/20/20 08:50: Bedside Glucose (Misc Panel) 93 09/20/20 13:51: Bedside Glucose (Misc Panel) 98 09/20/20 20:26: Bedside Glucose (Misc Panel) 134H 09/21/20 07:10: Bedside Glucose (Misc Panel) 93 SANDOR PABLO CNM Sep 21, 2020 07:31
[2020-09-21 07:54] LABS: HEMOGLOBIN 7.6 g/dl (12.0-15.5); MEAN CORPUSCULAR HEMOGLOBIN 26.3 pg (27.0-33.0); MEAN CORPUSCULAR HGB CONC 31.7 g/dl (32.0-36.5); PLATELET COUNT, AUTOMATED 163 10^3/uL (150-450); RED BLOOD COUNT 2.89 10^6/uL (4.00-5.40); WHITE BLOOD COUNT 7.3 10^3/uL (4.0-10.0)
[2020-09-21] MEDS: PRENATAL VITAMINS CHEWABLE TABLET PO SCH (09:47)
[2020-09-21] MEDS: DOCUSATE SODIUM 100 MG CAP PO SCH ×2 (09:47→21:44)
[2020-09-21] MEDS: LABETALOL 200 MG TAB PO SCH ×2 (09:48→21:47)
--- NOTE | 2020-09-21 10:06 | RO ---
DATE OF OPERATION: 09/20/2020 SURGEON: Geri Meredith M.D. GLASS DECORATOR: Sophie Da Silva CLINICAL SERVICE: Obstetrics. INDICATION FOR OPERATION: Odalis is a 20-year-old G1, now P1-0-0-1, who was undergoing induction of labor at 37 weeks and 4 days for a history of pregestational diabetes that was not strictly controlled, and she required increasing doses of insulin in the third trimester. Chronic hypertension, fatty liver, history of herpes simplex, type 2, taking Valtrex, obesity, depression, and anxiety. Induction of labor proceeded uneventfully. She received Cytotec and Lu bulb at 3-4 cm. She had epidural, which was covering the contraction pain, yet she was not able to cope sufficiently and requested a section. She refused to labor any further despite multiple attempts to encourage her. PREOPERATIVE DIAGNOSES: 1. Elective section for refusal to continue laboring during induction of labor. 2. Pregestational diabetes, on insulin. 3. Chronic hypertension. 4. Fatty liver. 5. Herpes simplex virus, type 2, on Valtrex. 6. Obesity. 7. Depression/anxiety. POSTOPERATIVE DIAGNOSES: 1. Elective section for refusal to continue laboring during induction of labor. 2. Pregestational diabetes, on insulin. 3. Chronic hypertension. 4. Fatty liver. 5. Herpes simplex virus, type 2, on Valtrex. 6. Obesity. 7. Depression/anxiety. MATERIAL FORWARDED TO THE LABORATORY FOR EXAMINATION: None. DESCRIPTION OF FINDINGS: Male in occiput transverse (OT) presentation. scores 8 and 9. Weight 3850 grams, or 8 pounds 8 ounces. Normal-appearing uterus, fallopian tubes, and ovaries. Infection classification 2. ESTIMATED BLOOD LOSS: 700 mL. INTRAVENOUS FLUIDS: Lactated Ringer's 1200 mL. URINE OUTPUT: 400 mL of clear yellow urine. OPERATION PERFORMED: Primary low transverse section. ANESTHESIA: DESCRIPTION OF OPERATION: After obtaining informed consent, the patient was taken to the operating room. She had reassuring heart rate tracing prior. Lu catheter was already in place. Bilateral sequential compression devices were placed. She was prepped and draped in normal sterile fashion in the dorsal supine position with a left lateral tilt. A time-out was performed to confirm patient name, date of , procedure, and indication, and the team was in agreement. She received 2 grams of intravenous (IV) Ancef prophylactically. Epidural anesthesia was found to be adequate. Using an Allis clamp, Pfannenstiel skin incision was made with a scalpel and carried through to the underlying layer of fascia. Fascia was incised in the midline, and the incision was extended laterally with Kline scissors. Superior and inferior aspects of the fascial incision were grasped with Lucas clamps, elevated, and the underlying rectus muscles were dissected off bluntly and sharply. Peritoneum was entered digitally, and the rectus muscles were in the midline. Peritoneal incision was extended superiorly and inferiorly with good visualization of the bladder. At that time, a Mobius retractor was inserted. Vesicouterine peritoneum was identified, grasped with pickups, and entered sharply with Metzenbaum scissors. The incision was extended laterally, and the bladder flap was created digitally. At that point, the lower uterine segment was scored in a transverse fashion with a scalpel. The uterus was entered bluntly, and the incision was extended with traction. Bladder blade was removed, and the infant's head was elevated to the level of the incision. Fundal pressure was applied, and the head was delivered atraumatically in the OT position. Anterior shoulder, posterior shoulder, and corpus were delivered without difficulty. Nose and mouth were suctioned with bulb suction. Cord was clamped times two and cut. was handed off to the awaiting nursing team. The cord blood was obtained. Placenta was removed with uterine massage and traction on the umbilical cord. Uterus was left in situ for repair. Uterine incision was repaired with 0 Vicryl suture in a running-locking fashion. A second layer of 0 Monocryl was used to close the hysterotomy incision in an imbricating fashion. Uterine incision was inspected, and hemostasis was noted. Tubes are ovaries were normal in appearance. Peritoneum was closed using a 3-0 Vicryl suture in a running fashion. Rectus muscles were reapproximated with [id number] sutures using 0 Vicryl suture. Fascia was reapproximated using 0 Vicryl suture in a running fashion. Subcutaneous tissue was copiously irrigated. Liz's fascia was reapproximated using 3-0 Vicryl suture in a running fashion. Skin edges were reapproximated using three inverted interrupted stitches using 3-0 Vicryl suture followed by running subcuticular stitch using 4-0 Monocryl suture. Incision was cleaned using a wet lap, dried with a dry lap. Steri-Strips were applied in the usual fashion perpendicular to the Pfannenstiel incision. Optifoam dressing was applied over that. Vagina was cleared of all blood clot without active bleeding noted. Fundus was firm at U -2 cm. All counts were correct times two. Procedure was without complications, and the patient tolerated the procedure well. She was taken to the recovery room on labor and delivery in stable condition. TAYLA
[2020-09-21] MEDS ORDERED: ACETAMINOPHEN 500 MG TAB PO ONE (11:30)
[2020-09-21] MEDS: IBUPROFEN 800 MG TAB PO SCH ×2 (15:22→23:13)
[2020-09-22 02:00] VITALS: BP 182/81
[2020-09-22 02:04] VITALS: BP 144/84
[2020-09-22 06:00] VITALS: BP 160/88
[2020-09-22] MEDS: IBUPROFEN 800 MG TAB PO SCH (06:10)
[2020-09-22 06:30] VITALS: BP 154/80
[2020-09-22] MEDS ORDERED: IBUP80TA PO (06:56)
[2020-09-22] MEDS ORDERED: OXYC1TAB23 PO (06:57)
[2020-09-22] MEDS ORDERED: LABE20TAB PO (06:59)
--- NOTE | 2020-09-22 07:09 | DS.PDOC ---
Discharge Summary General Date of Admission Sep 18, 2020 at 17:02 Date of Discharge 09/22/2020 Attending Physician: CARLOS MANUEL GONZALEZ MD Discharge Summary PROCEDURES PERFORMED DURING STAY: [None]. ADMITTING DIAGNOSES: 1. 37 2/7 weeks, pregestational diabetes, chronic hypertension, induction. DISCHARGE DIAGNOSES: 1. delivered. COMPLICATIONS/CHIEF COMPLAINT: Induction Of Labor For Insulin Dependent Diabetic. HISTORY OF PRESENT ILLNESS: 20 yo at 37 2 admitted for induction due to pregestational diabetes and hypertension.. HOSPITAL COURSE: She was admitted on 09/18/2020. She had slow progress in labor. She was diagnosed with arrest of dilation.However, she also refused to continue with the labor process. On 09/20/2020 she underwent a primary section. She was placed on Labetalol 400 mg twice a day after delivery for hypertension. She had adequate return of blader and bowel function .She was stable for discharge on POD#2. DISCHARGE MEDICATIONS: Please see below. ALLERGIES: Please see below. PHYSICAL EXAMINATION ON DISCHARGE: VITAL SIGNS: Please see below. GENERAL: NAD HEENT: WNL, NCAT NECK: WNL CARDIOVASCULAR EXAMINATION: RRR RESPIRATORY EXAMINATION: CTA bilat ABDOMINAL EXAMINATION: NT, dressing c/d/i EXTREMITIES: tr edema LABORATORY DATA: Please see below. ACTIVITY: As tolerated. DIET: regular DISCHARGE PLAN: fu two weeks DISPOSITION: discahrge home. DISCHARGE INSTRUCTIONS: 1. reviewed. Continue Labetalol. DISCHARGE CONDITION: Stable. TIME SPENT ON DISCHARGE: Greater than 15 minutes. Vital Signs/I&Os Vital Signs Date Time Temp Pulse Resp B/P (MAP) Pulse Ox O2 Delivery O2 Flow Rate FiO2 09/22/20 06:30 154/80 (104) 09/22/20 06:00 97.5 89 18 98 Room Air I&O- Last 24 Hours up to 6 AM 09/22/20 06:00 Intake Total 480 ml Balance 480 ml Laboratory Data Labs 24H Laboratory Tests 2 09/21/20 07:10: Bedside Glucose (Misc Panel) 93 09/21/20 07:30: Nucleated Red Blood Cells % (auto) 0.0 09/21/20 11:43: Bedside Glucose (Misc Panel) 108H 09/21/20 16:07: Bedside Glucose (Misc Panel) 130H 09/21/20 21:26: Bedside Glucose (Misc Panel) 145H CBC/BMP Laboratory Tests 09/21/20 07:30 FSBS Laboratory Tests Test 09/21/20 07:10 09/21/20 11:43 09/21/20 16:07 09/21/20 21:26 Range/Units Bedside Glucose (Misc Panel) 93 108 130 145 70-105 MG/DL Discharge Medications Scheduled Ibuprofen (Ibuprofen) 800 Mg Tablet, 800 MG PO Q8H Labetalol HCl (Labetalol HCl) 200 Mg Tablet, 400 MG PO BID Scheduled PRN Oxycodone HCl/Acetaminophen (Oxycodone-Acetaminophen 5-325) 1 Each Tablet, 1 TAB PO TIDP PRN for pain Allergies Coded Allergies: shellfish derived (Unverified Allergy, Unknown, CRAB MEAT- HIVES, 03/10/19) metformin (Verified Adverse Reaction, Unknown, 09/18/20) diarrhea CARLOS MANUEL GONZALEZ MD Sep 22, 2020 07:09
[2020-09-22] MEDS: HumaLOG INSULIN (NovoLOG) PER UNIT SC SCH (07:30)
[2020-09-22] MEDS: DOCUSATE SODIUM 100 MG CAP PO SCH (08:10)
[2020-09-22 08:11] VITALS: BP 184/92
[2020-09-22] MEDS: LABETALOL 200 MG TAB PO SCH (08:11)
[2020-09-22] MEDS: PRENATAL VITAMINS CHEWABLE TABLET PO SCH (08:12)
== END 2020-09-22 12:45 | disposition home or self-care (01) | DRG 540 ==
LOC: M LDI 17:02 → M OBS 09-20 13:38
PROVIDERS: ADMIT Advanced Practice Midwife; ATTEND Obstetrics & Gynecology
PROC: 3E0P7GC Introduction of Other Therapeutic Substance into Female Reproductive, Via Natural or Artificial Opening (ICD-10-PCS; 2020-09-18)
PROC: 10D00Z1 Extraction of Products of Conception, Low, Open Approach (ICD-10-PCS; principal; 2020-09-20 10:30)
DX: O24.12 Pre-existing type 2 diabetes mellitus, in childbirth (principal); Z3A.37 37 weeks gestation of pregnancy; O10.02 Pre-existing essential hypertension complicating childbirth; O99.344 Other mental disorders complicating childbirth; F32.9 Major depressive disorder, single episode, unspecified; F41.9 Anxiety disorder, unspecified; O99.214 Obesity complicating childbirth; O62.0 Primary inadequate contractions; E66.9 Obesity, unspecified; O98.32 Other infections with a predominantly sexual mode of transmission complicating childbirth; Z37.0 Single live birth; A60.09 Herpesviral infection of other urogenital tract

== ENCOUNTER 2020-09-24 12:25 | Observation (INO) | payer OTHER ==
[~2020-09-24] VITALS: Ht 157.5 cm; Wt 98.5 kg
[~2020-09-24 12:25] MED LIST changes: +ASPI81TA26; +FOLI20CA PO; +IBUP80TA PO; +INSUR; +LABE20TAB PO; +MAPA500T2 PO; +OXYC1TAB23 PO
[2020-09-24] MEDS ORDERED: INSUR SQ (12:35)
[2020-09-24] MEDS ORDERED: LABETALOL 100MG/20ML VIAL IV ONE (12:45)
[2020-09-24] MEDS ORDERED: LABETALOL 200 MG TAB PO ONE (13:00)
[2020-09-24] MEDS ORDERED: LABETALOL 100MG/20ML VIAL IV STA ×2 (13:04→13:30)
[2020-09-24 13:07] LABS: BASO % 0.3 % (0.0-1.0); EOS # 0.3 10^3/uL (0.0-0.5); EOS % 4.3 % (0.0-3.0); HEMATOCRIT 29.5 % (36.0-47.0); HEMOGLOBIN 9.3 g/dl (12.0-15.5); LYMPH # 1.6 10^3/uL (1.5-5.0); MEAN CORPUSCULAR HEMOGLOBIN 26.3 pg (27.0-33.0); MEAN CORPUSCULAR HGB CONC 31.5 g/dl (32.0-36.5); MEAN CORPUSCULAR VOLUME 83.3 fl (80.0-96.0); MONO # 0.4 10^3/uL (0.0-0.8); MONO % 5.8 % (0.0-5.0); NEUTROPHILS # 4.2 10^3/uL (1.5-8.5); NEUTROPHILS % 63.7 % (36.0-66.0); PLATELET COUNT, AUTOMATED 277 10^3/uL (150-450); RED BLOOD COUNT 3.54 10^6/uL (4.00-5.40); WHITE BLOOD COUNT 6.6 10^3/uL (4.0-10.0)
[2020-09-24] MEDS ORDERED: FUROSEMIDE 40MG/4ML VIAL (J1940) IV ONE (13:15)
[2020-09-24 13:17] LABS: INR 0.98; PROTHROMBIN TIME 13.2 SECONDS (12.5-14.3)
[2020-09-24 13:18] LABS: PARTIAL THROMBOPLASTIN TIME 30.6 SECONDS (24.2-38.5)
[2020-09-24 13:31] LABS: ALBUMIN 2.5 GM/DL (3.2-5.2); ALT/SGPT 29 U/L (12-78); BILIRUBIN,DIRECT 0.1 MG/DL (0.0-0.2); BILIRUBIN,TOTAL 0.4 MG/DL (0.2-1.0); BLOOD UREA NITROGEN 7 MG/DL (7-18); CALCIUM LEVEL 8.3 MG/DL (8.5-10.1); CARBON DIOXIDE LEVEL 26 MEQ/L (21-32); CHLORIDE LEVEL 111 MEQ/L (98-107); CREATININE FOR GFR 0.64 MG/DL (0.55-1.30); GLOMERULAR FILTRATION RATE > 60.0 (>60); GLUCOSE, FASTING 93 MG/DL (70-100); MAGNESIUM LEVEL 1.7 MG/DL (1.8-2.4); POTASSIUM SERUM 3.7 MEQ/L (3.5-5.1); SODIUM LEVEL 142 MEQ/L (136-145); TOTAL PROTEIN 6.6 GM/DL (6.4-8.2); URIC ACID 5.2 MG/DL (2.6-6.0)
[2020-09-24 13:33] LABS: CK-MB VALUE MASS 6.5 NG/ML (<3.6); CPK CREATINE PHOSPHOKINASE 539 U/L (26-192); MB/CK RELATIVE INDEX 1.21 (< OR =4); NT-PRO BNP 658 PG/ML (<125); TROPONIN I < 0.02 NG/ML (< 0.10)
[2020-09-24 13:39] LABS: APPEARANCE, URINE CLEAR (CLEAR); BACTERIA, URINE AUTO NEGATIVE (NEGATIVE); BILIRUBIN, URINE AUTO NEGATIVE (NEGATIVE); BLOOD, URINE BLOOD 3+ (NEGATIVE); COLOR, URINE STRAW (YELLOW); GLUCOSE, URINE (UA) AUTO NEGATIVE (NEGATIVE); KETONE, URINE AUTO NEGATIVE (NEGATIVE); LEUKOCYTE ESTERASE, URINE AUTO NEGATIVE (NEGATIVE); NITRITE, URINE AUTO NEGATIVE (NEGATIVE); PROTEIN, URINE AUTO NEGATIVE (NEGATIVE); RBC, URINE AUTO 23 /HPF (0-3); SPECIFIC GRAVITY URINE AUTO 1.003 (1.002-1.035); SQUAMOUS EPITHELIAL CELL UR AU 1 /HPF (0-6); UROBILINOGEN, URINE AUTO 0.2 mg/dL (0.0-2.0); WBC, URINE AUTO 1 /HPF (0-3)
--- NOTE | 2020-09-24 13:41 | REP ---
INDICATION: SOB. COMPARISON: 03/26/2019 TECHNIQUE: AP portable seated chest FINDINGS: Lungs are adequately inflated. There is bibasilar patchy infiltrate or atelectasis without gross effusion. Mid upper lung zones grossly clear. The cardiomediastinal silhouette and airway intact. No widening of the mediastinum. Aorta contour normal. There is an S-shaped thoracolumbar curve, convex left in the upper thoracic spine and convex right in the lower thoracic upper lumbar region. Bones without acute finding. No free air under the diaphragm. IMPRESSION: 1. There is bibasilar patchy infiltrates or atelectasis, left greater than right without gross effusion. <Electronically signed by Denny Mills > 09/24/20 [id number]
[2020-09-24] MEDS ORDERED: ISOVUE-370 76% 100ML VIAL As Ordered ONE (13:59)
--- NOTE | 2020-09-24 15:07 | REP ---
INDICATION: SOB; post operative; r/o PE. COMPARISON: Portable chest 09/24/2020 TECHNIQUE: Bolus 75 mL Isovue 370 scanning through the chest with coronal and sagittal standard and MIP reformats FINDINGS: There are bilateral pleural effusions present. There are patchy infiltrates in the bilateral bases. I do not see parenchymal mass, pleural based mass or pulmonary nodules. There are few scattered patchy areas of atelectasis or infiltrate in the mid and upper lung zones. The heart is not enlarged there is no pericardial thickening or effusion. The aorta is without aneurysm or dissection. The main, right and left pulmonary arteries are without filling defect or vessel cut off. The lobar, segmental and visible subsegmental arteries are also without filling defect or vessel cut off. No pathologic sized mediastinal or hilar adenopathy. No supraclavicular mass. Tracheal airway intact. Bone windows show sternum, manubrium, the spine, ribs, medial clavicles and portions of shoulders included without any focal lesion. The upper abdomen shows no discrete lesion. There was no hiatal hernia. Adrenal glands and upper pole left kidney normal. That portion of the pancreas included also unremarkable. IMPRESSION: 1. Small bilateral effusions, right slightly greater than left and bilateral lower lobe patchy infiltrates with some subtle ground-glass patchy atelectasis or small infiltrates mid lung zones as well. Correlate clinically for acute pneumonitis. 2. No CT evidence of pulmonary thromboembolism, aortic aneurysm or dissection, mediastinal or hilar adenopathy nor other acute finding. <Electronically signed by Denny Mills > 09/24/20 [id number]
[2020-09-24] MEDS ORDERED: MAG Sulf (L&D) 4 GM/100 ML 4 GM in IV 1 EA IV ONE (16:00)
[2020-09-24] MEDS ORDERED: hydrALAZINE 20MG/ML 1ML VIAL (J0360 PER 20MG) IV ONE (16:15)
[2020-09-24] MEDS ORDERED: IBUP80TA PO (16:51)
[2020-09-24] MEDS ORDERED: LABE200T32 PO (16:51)
[2020-09-24] MEDS ORDERED: PERCOCET 5MG/325MG TAB PO PRN (17:00)
[2020-09-24] MEDS ORDERED: IBUPROFEN 800 MG TAB PO PRN (17:00)
[2020-09-24 20:00] VITALS: BP 142/72
[2020-09-24] MEDS: LABETALOL 200 MG TAB PO SCH (20:50)
--- NOTE | 2020-09-24 21:43 | IPNPDOC ---
Text Note Date of Service The patient was seen on 09/24/20. NOTE H&P HPI: 20yo POD #4 s/p 1LTCS for arrest of dilation, presents with ED with severely elevated BPs. She presented to urgent care initially with shortness of breath. Her workup was unremarkable. She has a h/o CHTN and was started on oral labetalol 400mg BID. Prior to this she was not on anything for BP control. She deines visual changes, abd pain or headaches. PMHx: 1. DM 2. CHTN 3. depression and anxiety 4. Fatty Liver 5. Asthma 5. Migraines PSHx: 1LTCS 09/20/20 Meds: Labetalol 400mg BID SH: Denies tobacco, alcohol and drug use O: Gen: well appearing, NAD Chest: CTAB CVS: RRR abd: soft, nttp. incision: C/D/I Ext: neg calf tenderness A/P: 20yo with HTN exacerbation, unlikely related to superimposed preeclampsia - Will increase labetalol and considering adding 2nd agent -cont monitor and support postoperative care VS,Lakhwinderbone, I+O VS, Lakhwinderbone, I+O Laboratory Tests 09/24/20 12:57 Vital Signs Date Time Temp Pulse Resp B/P (MAP) Pulse Ox O2 Delivery O2 Flow Rate FiO2 09/24/20 20:50 91 142/72 09/24/20 20:00 97.7 16 99 Room Air 09/24/20 13:05 96 JOHN JEROME MD. Sep 24, 2020 21:43
[2020-09-24 21:59] VITALS: BP 157/85
[2020-09-25] VITALS (11 sets, daily range): BP systolic 154–220; BP diastolic 70–140
[2020-09-25] MEDS: LABETALOL 200 MG TAB PO SCH ×3 (08:00→21:00)
[2020-09-25] MEDS: NIFEdipine 30 MG XL TAB PO SCH (08:00)
--- NOTE | 2020-09-25 09:42 | ECGEPIP ---
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
--- NOTE | 2020-09-25 12:58 | IPNPDOC ---
Text Note Date of Service The patient was seen on 09/25/20. NOTE Nursing staff called to report elevated Blood pressures. She also reports that patient is having a hard time emotionally being away from her . Nurse reported BP of 190/124 and repeat of 180/110. Reported to Dr. Chan. Desires consult from hospitalist. Hospitalist notified and reported they will be up to evaluate her within an hour. Continue with prescribed medication. VS,Lakhwinderbone, I+O VS, Fishbone, I+O Laboratory Tests 09/24/20 12:57 SANDOR PABLO CNM Sep 25, 2020 12:58
[2020-09-25] MEDS ORDERED: FUROSEMIDE 40MG/4ML VIAL (J1940) IV ONE (13:30)
[2020-09-25 14:26] LABS: BASO % 0.4 % (0.0-1.0); EOS # 0.3 10^3/uL (0.0-0.5); HEMATOCRIT 31.9 % (36.0-47.0); HEMOGLOBIN 10.1 g/dl (12.0-15.5); LYMPH # 1.6 10^3/uL (1.5-5.0); LYMPH % 19.8 % (24.0-44.0); MEAN CORPUSCULAR HEMOGLOBIN 26.2 pg (27.0-33.0); MEAN CORPUSCULAR HGB CONC 31.7 g/dl (32.0-36.5); MEAN CORPUSCULAR VOLUME 82.6 fl (80.0-96.0); MONO # 0.5 10^3/uL (0.0-0.8); MONO % 5.9 % (0.0-5.0); NEUTROPHILS # 5.6 10^3/uL (1.5-8.5); NEUTROPHILS % 69.3 % (36.0-66.0); PLATELET COUNT, AUTOMATED 309 10^3/uL (150-450); RED BLOOD COUNT 3.86 10^6/uL (4.00-5.40); WHITE BLOOD COUNT 8.1 10^3/uL (4.0-10.0)
[2020-09-25 15:14] LABS: ALBUMIN 2.6 GM/DL (3.2-5.2); ALT/SGPT 28 U/L (12-78); BILIRUBIN,TOTAL 0.5 MG/DL (0.2-1.0); BLOOD UREA NITROGEN 7 MG/DL (7-18); CALCIUM LEVEL 8.5 MG/DL (8.5-10.1); CARBON DIOXIDE LEVEL 24 MEQ/L (21-32); CHLORIDE LEVEL 110 MEQ/L (98-107); CREATININE FOR GFR 0.61 MG/DL (0.55-1.30); GLOMERULAR FILTRATION RATE > 60.0 (>60); GLUCOSE, FASTING 107 MG/DL (70-100); NT-PRO BNP 578 PG/ML (<125); POTASSIUM SERUM 3.9 MEQ/L (3.5-5.1); SODIUM LEVEL 142 MEQ/L (136-145); TOTAL PROTEIN 6.2 GM/DL (6.4-8.2)
--- NOTE | 2020-09-25 15:29 | CR.PDOC ---
General Date of Consultation: Sep 25, 2020 Consultation Chief complaint: Presented to [facility] for shortness of breath and leg swelling History of present illness: Patient is a 20 year old female with a PMHx of Gestational DM2, Fatty liver, Asthma, Depression / Anxiety, who initially presented to the ER on 09/18 and had her delivery on 09/20 via section. Patient was ultimately discharged on 09/22. On 09/23, patient was expressing shortness of breath, chest tightness, no palpitations or cough. Patient denies any nausea, vomiting, abdominal pain consultation, diarrhea, or urinary discomfort. She presented to the ER on 09/24 and was admitted to the to the [facility] service for hypertensive emergency. Patient has received furosemide in the emergency room and then was admitted with a higher dose of labetolol. On 09/25, patient continued to have an elevated blood pressure and was started on Nifedipine and hospitalist services was consulted. Currently patient denies any chest pain, shortness of breath, palpitations, nausea, vomiting, abdominal pain, constipation, diarrhea, or urinary discomfort. She reports that her leg swelling has improved significantly compared to yesterday after she had urinated significantly. Patient denies any fevers or chills. Denies any changes in her weight or her appetite. Patient reports that on the last week of her . She was noted to have an elevated blood pressure, but did not require any further medications. Patient reports that this is her first , and she did not have any complications throughout. 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 Review of Systems: 10 point review of systems complete, all negative otherwise stated in HPI Physical exam: - Vitals: BP [180/110], HR [97], RR [17], Sat [95%RA], Temp [97.8F] - General: Lying in bed, No acute distress, Speaking in full sentences, AAOx3 - HEENT: NC, AT, PERRLA - CVS: RRR, +S1S2, +S3 gallop - Lungs: Fair air entry bilaterally, No appreciable wheezing / rales / rhonchi - Abdomen: Soft, Non-distended, Non-tender - Extremities: Trace pitting edema, No calf tenderness - Neuro: No focal motor or sensory deficit - Skin: No visible rashes Assessment and Plan: Hypertension - possibly 2/2 fluid overload, possibly 2/2 cardiomyopathy, possibly 2/2 pre-eclampsia - Currently patient denies any chest pain, shortness breath or palpitations - She notes that she feels better than she did yesterday - Physical reveals trace pitting edema and an S3 gallop - Magnesium level noted - BNP elevated - CXR 09/24: 1. There is bibasilar patchy infiltrates or atelectasis, left greater than right without gross effusion. - CTA 09/24: 1. Small bilateral effusions, right slightly greater than left and bilateral lower lobe patchy infiltrates with some subtle ground-glass patchy atelectasis or small infiltrates mid lung zones as well. Correlate clinically for acute pneumonitis. 2. No CT evidence of pulmonary thromboembolism, aortic aneurysm or dissection, mediastinal or hilar adenopathy nor other acute finding.-year-old - Will check ECHO, Urinalysis / Urine proteins / Renal Doppler Flow / Catecholamine / Metanephrine - c/w Telemetry monitoring and PCU status - Will DC NSAIDS - Will give single dose of Furosemide 40 IV - c/w Labetalol / Nifedipine Recent - Patient had a caesarian section 09/20 - Wound appears to be healing well - Patient reports that she will not be breast feeding; discussed that Furosemide can be present in breast milk - No evidence of infection DVT prophylaxis - Will start TEDs/Sequentials Vital Signs/I&O Vital Signs Date Time Temp Pulse Resp B/P (MAP) Pulse Ox O2 Delivery O2 Flow Rate FiO2 09/25/20 12:00 180/110 (133) 09/25/20 10:00 97 09/25/20 08:00 97.8 17 95 Room Air 09/24/20 13:05 96 I&O- Last 24 Hours up to 6 AM 09/25/20 06:00 Intake Total 755 ml Output Total 4150 ml Balance -3395 ml Laboratory Data Labs 24H Laboratory Tests 2 09/24/20 18:06: Coronavirus (COVID-19)(PCR) NEGATIVE 09/25/20 13:54: Immature Granulocyte % (Auto) 0.6, Neutrophils (%) (Auto) 69.3H, Lymphocytes (%) (Auto) 19.8L, Monocytes (%) (Auto) 5.9H, Eosinophils (%) (Auto) 4.0H, Basophils (%) (Auto) 0.4, Neutrophils # (Auto) 5.6, Lymphocytes # (Auto) 1.6, Monocytes # (Auto) 0.5, Eosinophils # (Auto) 0.3, Basophils # (Auto) 0.0, Nucleated Red Blood Cells % (auto) 0.0, Anion Gap 8, Glomerular Filtration Rate > 60.0, Calcium Level 8.5, Magnesium Level 2.0, Total Bilirubin 0.5, Aspartate Amino T ransf (AST/SGOT) 25, Alanine Aminotransferase (ALT/SGPT) 28, Alkaline Phosphatase 125H, GE-Zwz-P-Type Natriuretic Peptide 578H, Total Protein 6.2L, Albumin 2.6L, Albumin/Globulin Ratio 0.7L 09/25/20 14:26: CBC/BMP Laboratory Tests 09/25/20 13:54 Allergies Coded Allergies: shellfish derived (Unverified Allergy, Unknown, CRAB MEAT- HIVES, 03/10/19) metformin (Verified Adverse Reaction, Unknown, 09/18/20) diarrhea Home Medications Scheduled Insulin Human Regular (Novolin R) 100 Unit/1 Ml Vial, 38 UNITS SQ BID, (Reported) Labetalol HCl (Labetalol HCl) 200 Mg Tablet, 400 MG PO BID, (Reported) Scheduled PRN Ibuprofen (Ibuprofen) 800 Mg Tablet, 800 MG PO TID PRN for PAIN, (Reported) TAYLOR KAUFMAN MD Sep 25, 2020 15:29
[2020-09-25 15:41] LABS: CREATININE,RANDOM URINE < 13.0 MG/DL; TOTAL PROTEIN,RANDOM URINE < 5.0 MG/DL (0.0-12.0)
[2020-09-25] MEDS: ACETAMINOPHEN TAB 650MG DOSE (2X325MG) PO PRN ×2 (16:04→23:06)
[2020-09-25] MEDS ORDERED: LABETALOL 100MG/20ML VIAL IV STA (17:56)
[2020-09-26] VITALS (16 sets, daily range): BP systolic 136–178; BP diastolic 64–102
[2020-09-26] MEDS ORDERED: LABETALOL 100MG/20ML VIAL IV STA ×2 (02:04→04:13)
[2020-09-26] MEDS: LABETALOL 200 MG TAB PO SCH ×3 (06:35→20:40)
[2020-09-26] MEDS: ACETAMINOPHEN TAB 650MG DOSE (2X325MG) PO PRN ×2 (06:36→18:26)
[2020-09-26] MEDS: NIFEdipine 30 MG XL TAB PO SCH (08:34)
--- NOTE | 2020-09-26 09:21 | IPNPDOC ---
Text Note Date of Service The patient was seen on 09/26/20. NOTE Subjective: Patient seen and examined at bedside. No acute overnight events reported. No new medical complaints this morning. Denies chest pain, headaches, SOB, N/VD, changes in vision, dizziness. Objective: General: NAD, lying comfortably in bed HEENT: NC/AT, EOMI Lungs: CTA B/L Heart: +S1S2, RRR, systolic murmur Abd: soft, NT, +BS Ext: trace edema A/P: 20F with PMHx of Gestational DM2, Fatty liver, Asthma, Depression / Anxiety, who initially presented to the ER on 09/18 and had her delivery on 09/20 via section. Patient was ultimately discharged on 09/22. She presented to the ER on 09/24 and was admitted to the to the [facility] service for hypertensive emergency. Patient received furosemide in the emergency room and then was admitted with a higher dose of labetolol. On 09/25, patient continued to have an elevated blood pressure and was started on Nifedipine and hospitalist services was consulted. #HTN - possibly 2/2 fluid overload, possibly 2/2 cardiomyopathy, possibly 2/2 pre- eclampsia - Currently patient denies any chest pain, shortness breath or palpitations - She notes that she feels better than she did yesterday - Physical reveals trace pitting edema - BNP elevated - CXR 09/24: 1. There is bibasilar patchy infiltrates or atelectasis, left greate r than right without gross effusion. - CTA 09/24: 1. Small bilateral effusions, right slightly greater than left and bilateral lower lobe patchy infiltrates with some subtle ground-glass patchy atelectasis or small infiltrates mid lung zones as well. Correlate clinically for acute pneumonitis. 2. No CT evidence of pulmonary thromboembolism, aortic aneurysm or dissection, mediastinal or hilar adenopathy nor other acute finding.-year-old - Will check ECHO, Urinalysis / Urine proteins / Renal Doppler Flow / Catecholamine / Metanephrine - c/w Telemetry monitoring and PCU status - c/w Labetalol / Nifedipine - discussed with cardiology - assistance appreciated - recs for one time dose HCTZ, re-evaluate tomorrow, could increase nifedipine dosage tomorrow if needed #Recent - follow as per primary team - Patient had a caesarian section 09/20 #DVT prophylaxis - TEDs/Sequentials VS,Fishbone, I+O VS, Fishbone, I+O Laboratory Tests 09/25/20 13:54 Vital Signs Date Time Temp Pulse Resp B/P (MAP) Pulse Ox O2 Delivery O2 Flow Rate FiO2 09/26/20 08:34 176/102 09/26/20 08:00 98.4 82 18 95 Room Air 09/24/20 13:05 96 I&O- Last 24 Hours up to 6 AM 09/26/20 06:00 Intake Total 1740 ml Output Total 4150 ml Balance -2410 ml CARLOS MANUEL SHORE MD Sep 26, 2020 09:21
--- NOTE | 2020-09-26 10:21 | REP ---
INDICATION: HTN. COMPARISON: Comparison CT study abdomen and pelvis apr 16 2015.. TECHNIQUE: Urinary tract sonography with renal artery Doppler assessment. FINDINGS: Renal cortical echogenicity pattern is normal and renal contours are smooth. No mass, cyst, or calculus is appreciated. There is no evidence hydronephrosis. Right kidney measures 11.5 x 6.9 x 5.0 cm. Left renal dimensions are 12.0 x 5.8 x 6.2 cm. Scanning at the level of the urinary bladder shows no abnormality. Renal Doppler assessment: Peak systolic velocity in the abdominal aorta at the level of main renal arteries is recorded at 170 centimeters/second. Peak systolic flow velocity in the right renal artery is 153 centimeters/second and that in the left 142 centimeters/second. These values are normal. Renal to aortic flow velocity ratios are normal at 0.9 on the right and 0.8 on the left. Resistive indices and acceleration times are measured in the intralobar arteries of the upper, mid, and lower pole of each kidney. These values are normal bilaterally. IMPRESSION: No morphologic abnormality. No renal Doppler evidence to suggest renal artery stenosis. <Electronically signed by Bret Gordillo > 09/26/20 [id number]
[2020-09-26] MEDS ORDERED: hydroCHLOROthiazide 12.5 MG CAPSULE PO ONE ×2 (15:00→17:15)
[2020-09-26] MEDS ORDERED: hydroCHLOROthiazide 25 MG TAB PO ONE (15:00)
--- NOTE | 2020-09-26 16:45 | IPNPDOC ---
Progress Note Date of Service: Sep 26, 2020 Progress Note SUBJECT: Pt is a 20-year-old 1 now Para 1 status post section POD#4 admitted with hypertensive crisis since 08/24/2020. She has no complaints. No GUTIERREZ's today. OBJECTIVE: VITAL SIGNS: Within normal limits, afebrile. Alert and oriented times three. Breath sounds clear to auscultation. Heart rate: Regular rate and rhythm, no murmurs, rubs or gallops. Abdomen: Fundus firm at U-2. Soft, NTTP. ASSESSMENT: Pt is a 20-year-old 1 now Para 1 POD#4 with hypertensive crisis PLAN: 1. Labetalol 400 mg BID 2. Nifedipine XR 30 mg daily 3. Hydrochlorothiazade 25 mg daily 4. results of echocardiogram pending 5 Appreciate medicine consultation VS, I&O, 24H, Fishbone Vital Signs/I&O Vital Signs Date Time Temp Pulse Resp B/P (MAP) Pulse Ox O2 Delivery O2 Flow Rate FiO2 09/26/20 15:23 90 170/82 09/26/20 12:00 99.7 18 98 Room Air 09/24/20 13:05 96 I&O- Last 24 Hours up to 6 AM 09/26/20 06:00 Intake Total 1740 ml Output Total 4150 ml Balance -2410 ml CARLOS MANUEL GONZALEZ MD Sep 26, 2020 16:45
[2020-09-27] VITALS: BP 155/81
[2020-09-27 04:00] VITALS: BP 158/56
[2020-09-27] MEDS ORDERED: HYDR12.55 PO (05:20)
[2020-09-27] MEDS ORDERED: NIFE1TAB52 PO (05:20)
[2020-09-27 06:00] VITALS: BP 161/88
[2020-09-27 06:29] LABS: HEMATOCRIT 33.1 % (36.0-47.0); HEMOGLOBIN 10.5 g/dl (12.0-15.5); MEAN CORPUSCULAR HEMOGLOBIN 26.3 pg (27.0-33.0); MEAN CORPUSCULAR HGB CONC 31.7 g/dl (32.0-36.5); MEAN CORPUSCULAR VOLUME 82.8 fl (80.0-96.0); PLATELET COUNT, AUTOMATED 318 10^3/uL (150-450); WHITE BLOOD COUNT 6.6 10^3/uL (4.0-10.0)
[2020-09-27 07:02] LABS: BLOOD UREA NITROGEN 7 MG/DL (7-18); CALCIUM LEVEL 8.6 MG/DL (8.5-10.1); CARBON DIOXIDE LEVEL 25 MEQ/L (21-32); CHLORIDE LEVEL 106 MEQ/L (98-107); CREATININE FOR GFR 0.62 MG/DL (0.55-1.30); GLOMERULAR FILTRATION RATE > 60.0 (>60); GLUCOSE, FASTING 102 MG/DL (70-100); NT-PRO BNP 119 PG/ML (<125); POTASSIUM SERUM 3.8 MEQ/L (3.5-5.1); SODIUM LEVEL 139 MEQ/L (136-145)
--- NOTE | 2020-09-27 07:47 | DS.PDOC ---
Discharge Summary General Date of Admission Sep 24, 2020 at 12:26 Date of Discharge September 27, 2020 Attending Physician: CARLOS MANUEL GONZALEZ MD Discharge Summary PROCEDURES PERFORMED DURING STAY: [None]. ADMITTING DIAGNOSES: 1. post hypertensive crisis. DISCHARGE DIAGNOSES: 1. same. COMPLICATIONS/CHIEF COMPLAINT: Hypertensive Crisis. HISTORY OF PRESENT ILLNESS: 20 yo POD#3 s/p presents with increased BP's at home. HOSPITAL COURSE: Pt was admitted for BP in the range of 180/110. She had a CT angiogram, as well as echocardiogram and blood work .She received a total of 3 antihypertensive Meds to control her BP: Labetalol, Nifedipine XR, and hydrochlorothiazide. She had a Medicine consult. Her BP was reasonably well controlled. She was stable for discharge on 09/27/2020. DISCHARGE MEDICATIONS: Please see below. ALLERGIES: Please see below. PHYSICAL EXAMINATION ON DISCHARGE: VITAL SIGNS: Please see below. GENERAL: NAD HEENT: WNL NECK: WNL CARDIOVASCULAR EXAMINATION: RRR RESPIRATORY EXAMINATION: CTA ABDOMINAL EXAMINATION: nt, I c/d/i EXTREMITIES: wnl LABORATORY DATA: Please see below. PROGNOSIS: good ACTIVITY: As tolerated. DIET: reg DISCHARGE PLAN: home DISPOSITION: . DISCHARGE INSTRUCTIONS: 1. . DISCHARGE CONDITION: Stable. TIME SPENT ON DISCHARGE: Greater than [10 minutes. Vital Signs/I&Os Vital Signs Date Time Temp Pulse Resp B/P (MAP) Pulse Ox O2 Delivery O2 Flow Rate FiO2 09/27/20 06:00 72 161/88 (112) 09/27/20 04:00 97.3 18 98 Room Air 09/24/20 13:05 96 I&O- Last 24 Hours up to 6 AM 09/27/20 06:00 Intake Total 1080 ml Output Total 3200 ml Balance -2120 ml Laboratory Data Labs 24H Laboratory Tests 2 09/27/20 05:56: Nucleated Red Blood Cells % (auto) 0.0, Anion Gap 8, Glomerular Filtration Rate > 60.0, Calcium Level 8.6, QW-Agw-W-Type Natriuretic Peptide 119 CBC/BMP Laboratory Tests 09/27/20 05:56 Discharge Medications Scheduled Hydrochlorothiazide (Hydrochlorothiazide) 12.5 Mg Tablet, 1 TAB PO DAILY Labetalol HCl (Labetalol HCl) 200 Mg Tablet, 400 MG PO BID, (Reported) Nifedipine (Nifedipine ER) 30 Mg Tab.er.24, 30 MG PO DAILY Scheduled PRN Ibuprofen (Ibuprofen) 800 Mg Tablet, 800 MG PO TID PRN for PAIN, (Reported) Allergies Coded Allergies: shellfish derived (Unverified Allergy, Unknown, CRAB MEAT- HIVES, 03/10/19) metformin (Verified Adverse Reaction, Unknown, 09/18/20) diarrhea CARLOS MANUEL GONZALEZ MD Sep 27, 2020 07:47
[2020-09-27 08:00] VITALS: BP 158/92
[2020-09-27] MEDS: NIFEdipine 30 MG XL TAB PO SCH (08:00)
[2020-09-27 08:01] VITALS: BP 158/92
[2020-09-27] MEDS: LABETALOL 200 MG TAB PO SCH (08:01)
--- NOTE | 2020-09-27 09:47 | ECHO ---
DATE OF PROCEDURE: 09/26/2020 Age: 20 Gender: Female Height: 157 cm Weight: 105 kg REFERRING PHYSICIAN: Malia Lassiter M.D. INDICATION: Localized edema, unspecified. MEASUREMENTS: 2D Measurements: Interventricular septum 0.9 cm Posterior wall 1.10 cm Left ventricle diastole 5.35 cm Aortic root 2.3 cm Left atrial volume index 24 Inferior vena cava 1.6 cm (more than 50% respiratory variation) Doppler Measurements: No aortic regurgitation Aortic valve velocity 151 cm/s LVOT velocity 114 cm/s Trace mitral regurgitation within normal limits Mitral E velocity 111 cm/s Mitral A velocity 81.0 cm/s Mitral deceleration time 185 m/s Very mild tricuspid regurgitation Trace pulmonic regurgitation Pulmonary artery acceleration time 135 m/s MITRAL ANNULAR TISSUE DOPPLER E prime septal 10.0 cm/s, E prime lateral 11.4 cm/s DESCRIPTION: Rhythm was sinus. Image quality was good. This was a 2D, M-mode, color flow Doppler, and pulsed wave Doppler examination including mitral annular tissue Doppler. CONCLUSIONS: 1. Normal left ventricle internal dimensions and wall thickness. Normal regional left ventricular (LV) wall motion and wall thickening. Normal left ventricular (LV) systolic function. Left ventricular ejection fraction (LVEF) 60% by visual estimate. Normal left ventricular (LV) diastolic function. 2. Suggestive of normal pulmonary artery systolic pressure. Normal right ventricle size and systolic function. Normal right atrial size. 3. Suggestive of normal central venous pressure (5-10 mmHg). 4. Very small pericardial effusion. 5. Suspect presence of a small left pleural effusion. MTDD
[2020-09-27 10:00] VITALS: BP 150/78
--- NOTE | 2020-09-27 16:39 | IPNPDOC ---
Date Seen The patient was seen on 09/27/20. Progress Note SUBJECTIVE: Patient seen and examined this morning. No adverse events reported overnight. Patient is planned to be discharged home today with follow-up with [facility] and her PCP. She denies any shortness of breath or chest pain. OBJECTIVE PHYSICAL EXAMINATION: VITAL SIGNS: Please see below. GENERAL: Awake, alert, and oriented. No acute distress HEENT: Atraumatic, normocephalic. Eyes nonicteric CARDIOVASCULAR: Normal S1, S2. Regular rate and rhythm. No clicks rubs or murmurs RESPIRATORY: Clear breath sounds bilaterally. No wheezes, rhonchi or rales ABDOMINAL: Soft, nondistended. Nontender. Obese. Normoactive bowel sounds EXTREMITIES: No edema. Full equal pulses in bilateral upper and lower extremities NEUROLOGICAL: No focal neurological deficits PSYCHOLOGICAL: Mood and affect appear appropriate LABORATORY DATA, IMAGING STUDIES, MICROBIOLOGY: Please see below. Echocardiogram: REFERRING PHYSICIAN: Malia Lassiter M.D. INDICATION: Localized edema, unspecified. MEASUREMENTS: 2D Measurements: Interventricular septum 0.9 cm Posterior wall 1.10 cm Left ventricle diastole 5.35 cm Aortic root 2.3 cm Left atrial volume index 24 Inferior vena cava 1.6 cm (more than 50% respiratory variation) Doppler Measurements: No aortic regurgitation Aortic valve velocity 151 cm/s LVOT velocity 114 cm/s Trace mitral regurgitation within normal limits Mitral E velocity 111 cm/s Mitral A velocity 81.0 cm/s Mitral deceleration time 185 m/s Very mild tricuspid regurgitation Trace pulmonic regurgitation Pulmonary artery acceleration time 135 m/s MITRAL ANNULAR TISSUE DOPPLER E prime septal 10.0 cm/s, E prime lateral 11.4 cm/s DESCRIPTION: Rhythm was sinus. Image quality was good. This was a 2D, M-mode, color flow Doppler, and pulsed wave Doppler examination including mitral annulartissue Doppler. CONCLUSIONS: 1. Normal left ventricle internal dimensions and wall thickness. Normal regional left ventricular (LV) wall motion and wall thickening. Normal left ventricular (LV) systolic function. Left ventricular ejection fraction (LVEF) 60% by visual estimate. Normal left ventricular (LV) diastolic function. 2. Suggestive of normal pulmonary artery systolic pressure. Normal right ventricle size and systolic function. Normal right atrial size. 3. Suggestive of normal central venous pressure (5-10 mmHg). 4. Very small pericardial effusion. 5. Suspect presence of a small left pleural effusion. DD: João Merritt MD [facility] 09/26/20 1830 ASSESSMENT AND PLAN: Patient is a 20 year old female with a past medical history of gestational DM2, fatty liver, hypertension before and during , asthma, depression/anxiety who had presented to the [facility] ER on 09/18 and received a section on 09/20. She was discharged on 09/22 and subsequently developed swelling in her legs and presented to the ER 09/24 and was admitted to the [facility] service for hypertensive emergency. She received furosemide in the emergency room and then was admitted. She was given labetalol and started on Nifedipine. Hospitalist service was consulted for evaluation and management PROBLEMS: 1. HTN -Patient presented with severe hypertension. Possibly 2/2 to cardiomyopathy although echocardiogram unrevealing. Also possibly 2/2 pre-eclampsia. Patient has denied any chest pain, shortness of breath or palpitations -BNP elevated on admission. Has normalized. -Patient planned to be discharged on nifidipine, HCTZ, and labetalol 2. Recent s/p section -Patient will follow-up with OB DISPOSITION: Patient planned to be discharged today with follow-up with [facility] and PCP Attending Note: Patient seen and examined independently. Agree with resident's note. VS, I&O, 24H, Fishbone Vital Signs/I&O Vital Signs Date Time Temp Pulse Resp B/P (MAP) Pulse Ox O2 Delivery O2 Flow Rate FiO2 09/27/20 08:01 90 158/92 09/27/20 08:00 98.0 20 97 Room Air 09/24/20 13:05 96 I&O- Last 24 Hours up to 6 AM 09/27/20 05:59 Intake Total 1080 ml Output Total 2800 ml Balance -1720 ml Laboratory Data 24H LABS Laboratory Tests 2 09/27/20 05:56: Nucleated Red Blood Cells % (auto) 0.0, Anion Gap 8, Glomerular Filtration Rate > 60.0, Calcium Level 8.6, UA-Oqq-D-Type Natriuretic Peptide 119 09/27/20 08:48: CBC/BMP Laboratory Tests 09/27/20 05:56 SHELLY HOBSON DO Sep 27, 2020 16:39 CARLOS MANUEL SHORE MD Sep 27, 2020 18:12
[2020-10-02 13:06] LABS: DOPAMINE PLASMA <30 pg/mL (0-48); EPINEPHRINE PLASMA <15 pg/mL (0-62); NOREPINEPHRINE PLASMA 100 pg/mL (0-874)
== END 2020-09-27 11:03 | disposition home or self-care (01) ==
LOC: M ED 12:25 → M ED INP 12:26 → ENRESERV 16:41 → M PCU 17:41
PROVIDERS: ADMIT Obstetrics & Gynecology; ATTEND Obstetrics & Gynecology
DX: O10.03 Pre-existing essential hypertension complicating the puerperium (principal); I16.9 Hypertensive crisis, unspecified; Z79.899 Other long term (current) drug therapy; Z88.8 Allergy status to other drugs, medicaments and biological substances; Z91.013 Allergy to seafood
CPT/HCPCS: 36415; 71045; 71275; 76775; 80048; 80053; 80076; 81001; 82383; 82550; 82553; 82570; 83735; 83880; 84156; 84550; 85025; 85027; 85610; 85730; 86850; 86900; 86901; 93005; 93041; 93306; 93975; 94760; 96361; 96374; 96375; 96376; 99285; J0360; J1940; J3475; Q9967; U0002

== ENCOUNTER → 2021-01-22 | Outpatient (REF) | payer OTHER ==
[~2021-01-22] MED LIST changes: +HYDR12.55 PO; +INSUR SQ; +LABE200T32 PO; +NIFE1TAB52 PO
[2021-01-22 14:31] LABS: BLOOD UREA NITROGEN 9 MG/DL (7-18); CALCIUM LEVEL 9.4 MG/DL (8.5-10.1); CARBON DIOXIDE LEVEL 28 MEQ/L (21-32); CHLORIDE LEVEL 107 MEQ/L (98-107); CREATININE FOR GFR 0.76 MG/DL (0.55-1.30); GLOMERULAR FILTRATION RATE > 60.0 (>60); GLUCOSE, FASTING 103 MG/DL (70-100); POTASSIUM SERUM 4.3 MEQ/L (3.5-5.1); SODIUM LEVEL 140 MEQ/L (136-145)
[2021-01-22 14:43] LABS: CREATININE, URINE 42.9 MG/DL; MALB URINE SIEMENS 6.1 MG/L; MAU/CREAT RATIO 14.2 MCG/MG (0.0-30.0)
[2021-01-22 14:45] LABS: HEMOGLOBIN A1c 6.6 %
== END ==
LOC: M PLALAB 11:59
PROVIDERS: ATTEND Physician Assistant
DX: E11.9 Type 2 diabetes mellitus without complications (principal)

== ENCOUNTER → 2021-05-17 | Outpatient (REF) | payer OTHER ==
[2021-05-17 17:35] LABS: HEMOGLOBIN A1c 7.1 %
[2021-05-17 17:53] LABS: ALBUMIN 3.6 GM/DL (3.2-5.2); ALT/SGPT 55 U/L (12-78); BILIRUBIN,TOTAL 0.4 MG/DL (0.2-1.0); BLOOD UREA NITROGEN 13 MG/DL (7-18); CALCIUM LEVEL 9.6 MG/DL (8.5-10.1); CARBON DIOXIDE LEVEL 28 MEQ/L (21-32); CHLORIDE LEVEL 106 MEQ/L (98-107); CREATININE FOR GFR 0.78 MG/DL (0.55-1.30); GLOMERULAR FILTRATION RATE > 60.0 (>60); GLUCOSE, FASTING 143 MG/DL (70-100); POTASSIUM SERUM 4.3 MEQ/L (3.5-5.1); SODIUM LEVEL 141 MEQ/L (136-145); TOTAL PROTEIN 7.3 GM/DL (6.4-8.2)
== END ==
LOC: M SFHCPLAZ 13:33 → M SFHCADAM 14:06
PROVIDERS: ATTEND Physician Assistant
DX: E11.9 Type 2 diabetes mellitus without complications (principal)

== ENCOUNTER → 2021-08-03 | Outpatient (CLI) | payer OTHER ==
[2021-08-03 13:47] LABS: BLOOD UREA NITROGEN 16 MG/DL (7-18); CALCIUM LEVEL 9.2 MG/DL (8.5-10.1); CARBON DIOXIDE LEVEL 22 MEQ/L (21-32); CHLORIDE LEVEL 104 MEQ/L (98-107); CREATININE FOR GFR 0.88 MG/DL (0.55-1.30); FREE T4 1.03 NG/DL (0.76-1.46); GLOMERULAR FILTRATION RATE > 60.0 (>60); GLUCOSE, FASTING 319 MG/DL (70-100); POTASSIUM SERUM 4.3 MEQ/L (3.5-5.1); SODIUM LEVEL 138 MEQ/L (136-145)
[2021-08-03 14:40] LABS: HEMOGLOBIN A1c 7.8 %
== END ==
LOC: M PLALAB 11:23
PROVIDERS: ATTEND Physician Assistant
DX: R61 Generalized hyperhidrosis (principal); E11.9 Type 2 diabetes mellitus without complications

== ENCOUNTER → 2022-03-18 | Outpatient (REF) | payer OTHER ==
[~2022-03-18] MED LIST changes: +LABE200T3 PO; -LABE200T32 PO
== END ==
LOC: M SFHCPLAZ 13:13
PROVIDERS: ATTEND Family Medicine
DX: Z12.4 Encounter for screening for malignant neoplasm of cervix (principal)

== ENCOUNTER → 2022-06-25 | Outpatient (REF) | payer OTHER ==
[~2022-06-25] MED LIST changes: -LABE200T3 PO; +LABE200T5 PO
[2022-06-25 19:43] LABS: HEMOGLOBIN A1c 9.1 %
[2022-06-25 20:22] LABS: ALBUMIN 3.3 GM/DL (3.2-5.2); ALT/SGPT 30 U/L (12-78); BILIRUBIN,TOTAL 0.2 MG/DL (0.2-1.0); BLOOD UREA NITROGEN 10 MG/DL (7-18); CALCIUM LEVEL 9.3 MG/DL (8.5-10.1); CARBON DIOXIDE LEVEL 25 MEQ/L (21-32); CHLORIDE LEVEL 106 MEQ/L (98-107); CREATININE FOR GFR 0.66 MG/DL (0.55-1.30); GLOMERULAR FILTRATION RATE > 60.0 (>60); GLUCOSE, FASTING 167 MG/DL (70-100); POTASSIUM SERUM 4.2 MEQ/L (3.5-5.1); SODIUM LEVEL 138 MEQ/L (136-145); TOTAL PROTEIN 7.3 GM/DL (6.4-8.2)
[2022-06-25 20:35] LABS: MAU/CREAT RATIO 11.9 MCG/MG (0.0-30.0)
== END ==
LOC: M SFHCADAM 15:02
PROVIDERS: ATTEND Physician Assistant
DX: E11.9 Type 2 diabetes mellitus without complications (principal)

== ENCOUNTER → 2022-06-27 | Outpatient (REF) | payer OTHER | LOC: M SFHCPLAZ 13:12 | PROVIDERS: ATTEND Physician Assistant | DX: R87.615 Unsatisfactory cytologic smear of cervix (principal) ==

== ENCOUNTER → 2022-09-24 | Outpatient (REF) | payer OTHER ==
[~2022-09-24] MED LIST changes: +ALBU6.7H6 INH; -PROV108A INH
[2022-09-24 15:32] LABS: ALBUMIN 3.5 GM/DL (3.2-5.2); ALT/SGPT 30 U/L (12-78); BILIRUBIN,TOTAL 0.4 MG/DL (0.2-1.0); BLOOD UREA NITROGEN 12 MG/DL (7-18); CALCIUM LEVEL 9.3 MG/DL (8.5-10.1); CARBON DIOXIDE LEVEL 25 MEQ/L (21-32); CHLORIDE LEVEL 104 MEQ/L (98-107); CREATININE FOR GFR 0.71 MG/DL (0.55-1.30); GLOMERULAR FILTRATION RATE > 60.0 (>60); GLUCOSE, FASTING 202 MG/DL (70-100); POTASSIUM SERUM 4.2 MEQ/L (3.5-5.1); SODIUM LEVEL 139 MEQ/L (136-145); TOTAL PROTEIN 7.3 GM/DL (6.4-8.2)
[2022-09-24 20:41] LABS: HEMOGLOBIN A1c 8.5 %
== END ==
LOC: M SFHCADAM 10:13
PROVIDERS: ATTEND Physician Assistant
DX: Z68.37 Body mass index [BMI] 37.0-37.9, adult (principal); E11.9 Type 2 diabetes mellitus without complications

== ENCOUNTER → 2023-04-09 | Outpatient (REF) | payer OTHER ==
[~2023-04-09] MED LIST changes: +ETON1VAG7; -NUVAMIS2
[2023-04-09 15:09] LABS: ALBUMIN 3.6 G/DL (3.2-5.2); ALKALINE PHOSPHATASE 75 U/L (46-116); ALT/SGPT 25 U/L (7.0-40); AST/SGOT 30 U/L (<34); BILIRUBIN,TOTAL 0.7 MG/DL (0.3-1.2); BLOOD UREA NITROGEN 14 MG/DL (9-23); CALCIUM LEVEL 8.9 MG/DL (8.5-10.1); CARBON DIOXIDE LEVEL 23 MMOL/L (20-31); CHLORIDE LEVEL 107 MMOL/L (98-107); CREATININE FOR GFR 0.61 MG/DL (0.55-1.30); GLOMERULAR FILTRATION RATE > 60.0 (>60); GLUCOSE, FASTING 166 MG/DL (60-100); SODIUM LEVEL 137 MMOL/L (136-145); TOTAL PROTEIN 6.8 G/DL (5.7-8.2)
[2023-04-09 15:53] LABS: HEMOGLOBIN A1c 8.2 % (4.0-6.0)
== END ==
LOC: M SFHCADAM 08:56
PROVIDERS: ATTEND Physician Assistant
DX: E11.9 Type 2 diabetes mellitus without complications (principal)

== ENCOUNTER → 2023-07-11 | Outpatient (CLI) | payer OTHER ==
[2023-07-11 17:18] LABS: BASO % 0.3 % (0.0-1.0); EOS # 0.1 10^3/uL (0.0-0.5); HEMATOCRIT 46.8 % (36.0-47.0); HEMOGLOBIN 15.1 g/dl (12.0-15.5); LYMPH # 4.5 10^3/uL (1.5-5.0); LYMPH % 49.8 % (24.0-44.0); MEAN CORPUSCULAR HEMOGLOBIN 27.8 pg (27.0-33.0); MEAN CORPUSCULAR HGB CONC 32.3 g/dl (32.0-36.5); MEAN CORPUSCULAR VOLUME 86.2 fl (80.0-96.0); MONO # 0.7 10^3/uL (0.0-0.8); MONO % 7.3 % (2.0-8.0); NEUTROPHILS # 3.7 10^3/uL (1.5-8.5); NEUTROPHILS % 41.5 % (36.0-66.0); PLATELET COUNT, AUTOMATED 301 10^3/uL (150-450); RED BLOOD COUNT 5.43 10^6/uL (4.00-5.40)
[2023-07-11 17:23] LABS: ALBUMIN 3.7 G/DL (3.2-5.2); ALKALINE PHOSPHATASE 74 U/L (46-116); ALT/SGPT 17 U/L (7.0-40); AST/SGOT 8 U/L (<34); BILIRUBIN,TOTAL 0.6 MG/DL (0.3-1.2); BLOOD UREA NITROGEN 11 MG/DL (9-23); CALCIUM LEVEL 9.8 MG/DL (8.5-10.1); CARBON DIOXIDE LEVEL 26 MMOL/L (20-31); CHLORIDE LEVEL 106 MMOL/L (98-107); CHOLESTEROL LEVEL 141 MG/DL (<200); CHOLESTEROL RISK RATIO 2.48 (<5); CREATININE FOR GFR 0.69 MG/DL (0.55-1.30); GLOMERULAR FILTRATION RATE > 60.0 (>60); GLUCOSE, FASTING 91 MG/DL (60-100); HDL CHOLESTEROL 56.8 MG/DL (>40); LDL CHOLESTEROL 57.2 MG/DL (<100); NON-HDL-C 84.2 MG/DL; POTASSIUM SERUM 4.6 MMOL/L (3.5-5.1); SODIUM LEVEL 140 MMOL/L (136-145); TOTAL PROTEIN 7.3 G/DL (5.7-8.2); TRIGLYCERIDES LEVEL 135 MG/DL (<150)
[2023-07-11 17:33] LABS: HEMOGLOBIN A1c 6.5 % (4.0-6.0)
== END ==
LOC: M PLALAB 12:05
PROVIDERS: ATTEND Physician Assistant
DX: E66.9 Obesity, unspecified (principal); E11.9 Type 2 diabetes mellitus without complications; K76.0 Fatty (change of) liver, not elsewhere classified; K21.9 Gastro-esophageal reflux disease without esophagitis; Z13.220 Encounter for screening for lipoid disorders

== ENCOUNTER → 2024-04-27 | Outpatient (REF) | payer OTHER ==
[~2024-04-27] MED LIST changes: +GLIP5TAB17; -GLIP5TAB8
[2024-04-27 14:50] LABS: BASO % 0.3 % (0.0-1.0); EOS # 0.1 10^3/uL (0.0-0.5); EOS % 0.5 % (0.0-3.0); HEMATOCRIT 45.2 % (36.0-47.0); HEMOGLOBIN 14.7 g/dl (12.0-15.5); LYMPH # 3.8 10^3/uL (1.5-5.0); LYMPH % 40.6 % (24.0-44.0); MEAN CORPUSCULAR HEMOGLOBIN 28.5 pg (27.0-33.0); MEAN CORPUSCULAR HGB CONC 32.5 g/dl (32.0-36.5); MEAN CORPUSCULAR VOLUME 87.8 fl (80.0-96.0); MONO # 0.5 10^3/uL (0.0-0.8); MONO % 5.2 % (2.0-8.0); NEUTROPHILS # 4.9 10^3/uL (1.5-8.5); NEUTROPHILS % 53.1 % (36.0-66.0); PLATELET COUNT, AUTOMATED 283 10^3/uL (150-450); RED BLOOD COUNT 5.15 10^6/uL (4.00-5.40); WHITE BLOOD COUNT 9.3 10^3/uL (4.0-10.0)
[2024-04-27 15:15] LABS: HEMOGLOBIN A1c 5.8 % (4.0-6.0)
[2024-04-27 15:28] LABS: LIPASE 41 U/L (12-53)
[2024-04-27 15:30] LABS: ALBUMIN 3.3 G/DL (3.2-5.2); ALKALINE PHOSPHATASE 72 U/L (46-116); ALT/SGPT 15 U/L (7.0-40); AST/SGOT < 8 U/L (<34); BILIRUBIN,TOTAL 0.4 MG/DL (0.3-1.2); BLOOD UREA NITROGEN 12 MG/DL (9-23); CALCIUM LEVEL 8.7 MG/DL (8.5-10.1); CARBON DIOXIDE LEVEL 24 MMOL/L (20-31); CHLORIDE LEVEL 107 MMOL/L (98-107); CREATININE FOR GFR 0.57 MG/DL (0.55-1.30); GLOMERULAR FILTRATION RATE > 60.0 (>60); GLUCOSE, FASTING 107 MG/DL (60-100); POTASSIUM SERUM 4.4 MMOL/L (3.5-5.1); SODIUM LEVEL 139 MMOL/L (136-145); TOTAL PROTEIN 6.6 G/DL (5.7-8.2)
== END ==
LOC: M SFHCPLAZ 09:08
PROVIDERS: ATTEND Physician Assistant
DX: R10.84 Generalized abdominal pain (principal); E11.9 Type 2 diabetes mellitus without complications

== ENCOUNTER → 2025-02-03 | Outpatient (CLI) | payer OTHER ==
[~2025-02-03] MED LIST changes: +ETON1VAG7 VA; +JARD1TAB3 PO; +NAPR-1405 PO; -NAPR500T6 PO; +ONDA-282 PO; +PEPC1TAB5 PO; +SEMA2PEN SQ
[2025-02-03 12:20] LABS: CREATININE, URINE 87.6 MG/DL; MAU/CREAT RATIO 12.5 MCG/MG (0.0-30.0)
[2025-02-03 12:21] LABS: ALBUMIN 3.3 G/DL (3.2-5.2); ALKALINE PHOSPHATASE 79 U/L (35-104); ALT/SGPT 25 U/L (7.0-40); AST/SGOT 24 U/L (<34); BILIRUBIN,TOTAL 0.6 MG/DL (0.3-1.2); BLOOD UREA NITROGEN 11 MG/DL (9-23); CALCIUM LEVEL 8.8 MG/DL (8.5-10.1); CARBON DIOXIDE LEVEL 23 MMOL/L (20-31); CHLORIDE LEVEL 103 MMOL/L (98-107); CHOLESTEROL LEVEL 125 MG/DL (<200); CHOLESTEROL RISK RATIO 1.86 (<5); CREATININE FOR GFR 0.53 MG/DL (0.55-1.30); GLOMERULAR FILTRATION RATE > 60.0 (>60); GLUCOSE, FASTING 209 MG/DL (60-100); HDL CHOLESTEROL 67.2 MG/DL (>40); LDL CHOLESTEROL 31.2 MG/DL (<100); NON-HDL-C 57.8 MG/DL; POTASSIUM SERUM 4.4 MMOL/L (3.5-5.1); SODIUM LEVEL 135 MMOL/L (136-145); TOTAL PROTEIN 6.9 G/DL (5.7-8.2); TRIGLYCERIDES LEVEL 133 MG/DL (<150)
[2025-02-03 12:22] LABS: HEMOGLOBIN A1c 7.9 % (4.0-6.0)
[2025-02-03 12:23] LABS: FREE T4 1.17 NG/DL (0.89-1.76); THYROID STIMULATING HORMONE 2.667 uIU/ML (0.55-4.78)
== END ==
LOC: M PLALAB 08:55
PROVIDERS: ATTEND Nurse Practitioner Family
DX: E11.9 Type 2 diabetes mellitus without complications (principal); K76.0 Fatty (change of) liver, not elsewhere classified; Z13.29 Encounter for screening for other suspected endocrine disorder; Z13.220 Encounter for screening for lipoid disorders

== ENCOUNTER 2025-02-06 16:16 | Emergency (ER) | payer OTHER ==
[~2025-02-06] VITALS: Ht 157.5 cm; Wt 90.2 kg
[~2025-02-06 16:16] MED LIST changes: -ETON1VAG7 VA; -JARD1TAB3 PO; -ONDA-282 PO; -PEPC1TAB5 PO; -SEMA2PEN SQ
[2025-02-06] MEDS ORDERED: SEMA2PEN SQ (16:28)
[2025-02-06] MEDS ORDERED: JARD1TAB3 PO (16:28)
[2025-02-06] MEDS ORDERED: ETON1VAG7 VA (16:28)
[2025-02-06] MEDS ORDERED: PEPC1TAB5 PO (16:28)
[2025-02-06 17:03] LABS: BASO % 0.3 % (0.0-1.0); EOS % 0.1 % (0.0-3.0); HEMATOCRIT 48.8 % (36.0-47.0); HEMOGLOBIN 16.1 g/dl (12.0-15.5); LYMPH # 2.8 10^3/uL (1.5-5.0); LYMPH % 19.7 % (24.0-44.0); MEAN CORPUSCULAR HEMOGLOBIN 28.4 pg (27.0-33.0); MEAN CORPUSCULAR VOLUME 86.2 fl (80.0-96.0); MONO # 0.5 10^3/uL (0.0-0.8); MONO % 3.5 % (2.0-8.0); NEUTROPHILS # 10.7 10^3/uL (1.5-8.5); PLATELET COUNT, AUTOMATED 329 10^3/uL (150-450); RED BLOOD COUNT 5.66 10^6/uL (4.00-5.40)
[2025-02-06 17:37] LABS: ALBUMIN 3.8 G/DL (3.2-5.2); BILIRUBIN,DIRECT 0.2 MG/DL (<0.4); BILIRUBIN,TOTAL 0.7 MG/DL (0.3-1.2); TOTAL PROTEIN 8.1 G/DL (5.7-8.2)
[2025-02-06] MEDS: METOCLOPRAMIDE INJ 10MG/2ML VIAL IV ONE (18:35)
[2025-02-06 19:10] LABS: KETONE, URINE AUTO RFX 2+ mg/dL (NEGATIVE); LEUKOCYTE ESTERASE UR AUTO RFX NEGATIVE (NEGATIVE); MUCUS, URINE RFX SMALL (NEGATIVE); NITRITE, URINE AUTO RFX NEGATIVE (NEGATIVE); RBC, URINE AUTO RFX 2 /HPF (0-3); SQUAM EPITHELIAL CELL UR AURFX 2 /HPF (0-6); WBC, URINE AUTO RFX 4 /HPF (0-3)
[2025-02-06] MEDS ORDERED: ONDA-282 PO (20:03)
[2025-02-06 20:15] VITALS: BP 156/86; O2SAT 99
[2025-02-06 20:35] VITALS: TEMP 98.5
== END 2025-02-06 20:36 | disposition home or self-care (01) ==
LOC: M ED 16:16
DX: R11.2 Nausea with vomiting, unspecified (principal); E11.9 Type 2 diabetes mellitus without complications; K21.9 Gastro-esophageal reflux disease without esophagitis; F41.9 Anxiety disorder, unspecified; Z88.8 Allergy status to other drugs, medicaments and biological substances; Z91.013 Allergy to seafood; Z79.4 Long term (current) use of insulin; Z79.899 Other long term (current) drug therapy
CPT/HCPCS: 80047; 80076; 81001; 83690; 84702; 85025; 96374; 99284; J2765

== ENCOUNTER → 2025-02-25 | Outpatient (CLI) | payer OTHER ==
[~2025-02-25] MED LIST changes: +ETON1VAG7 VA; +JARD1TAB3 PO; +ONDA-282 PO; +PEPC1TAB5 PO; +SEMA2PEN SQ
== END ==
LOC: M RAD 09:27
PROVIDERS: ATTEND Nurse Practitioner Family
DX: K76.0 Fatty (change of) liver, not elsewhere classified (principal); K76.89 Other specified diseases of liver

== ENCOUNTER → 2025-03-10 | Outpatient (CLI) | payer OTHER ==
[~2025-03-10] MED LIST changes: +GADOXETATE DISODIUM 2.5MMOL/10ML VIAL (EOVIST) ONE
== END ==
LOC: M PLAIMG 09:34
PROVIDERS: ATTEND Nurse Practitioner Family
DX: R16.0 Hepatomegaly, not elsewhere classified (principal); K76.89 Other specified diseases of liver
CPT/HCPCS: 74183; A9581

== ENCOUNTER → 2025-10-31 | Outpatient (REF) | payer OTHER ==
[~2025-10-31] MED LIST changes: -GADOXETATE DISODIUM 2.5MMOL/10ML VIAL (EOVIST) ONE; -LABE200T5 PO; +LABE200T86 PO; +METF-1201; -METF-723
[2025-10-31 14:04] LABS: PLATELET COUNT, AUTOMATED 336 10^3/uL (150-450)
[2025-10-31 14:31] LABS: ESTIMATED AVERAGE GLUCOSE 186.0 MG/DL (60-110)
[2025-10-31 14:39] LABS: ALT/SGPT 32 U/L (7.0-40); AST/SGOT 29 U/L (<34); CALCIUM LEVEL 9.5 MG/DL (8.5-10.1); CARBON DIOXIDE LEVEL 25 MMOL/L (20-31); CHLORIDE LEVEL 103 MMOL/L (98-107); CREATININE FOR GFR 0.59 MG/DL (0.55-1.30); GLOMERULAR FILTRATION RATE > 90.0 (>60); POTASSIUM SERUM 4.9 MMOL/L (3.5-5.1); SODIUM LEVEL 137 MMOL/L (136-145)
== END ==
LOC: M SFHCADAM 09:41
DX: R16.0 Hepatomegaly, not elsewhere classified (principal); E11.9 Type 2 diabetes mellitus without complications